=== PATIENT | female | born 1980 | race Two or more races ===

== ENCOUNTER 2024-06-07 09:01 | Emergency (ER) | payer OTHER, SELFPAY ==
[2024-06-07] VITALS (12 sets, daily range): BP systolic 120–142; BP diastolic 67–97; PULSE 91–119; RESP 16–22; TEMP 36.6–37.2; O2SAT 97–100; BMI 36.3
--- NOTE | 2024-06-07 09:17 | PD.EDRME ---
Rapid Medical Screening Exam RME Arrival date/time: 06/07/24 09:01 43-year-old female with history of heavy menstrual cycles presents with concerns for low hemoglobin. Patient reports that she takes TXA on a regular basis. Chief Complaint: General Adult/Misc Complain
--- NOTE | 2024-06-07 09:23 | EKG_ITS ---
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
[2024-06-07 10:15] LABS: Basophils # (Auto) 0.1 Thou/mm3 (0.0-0.2); Basophils % (Auto) 1 % (0-2.5); Eosinophils # (Auto) 0.3 Thou/mm3 (0.0-0.5); Eosinophils % (Auto) 3 % (0-10); Hematocrit 22.3 % (36.0-46.0); Immature Granulocytes % (Auto) 1 % (0-0); Immature Granulocytes Auto 0.09 Thou/mm3 (0.00-0.00); Lymphocytes # (Auto) 1.7 Thou/mm3 (1.0-4.8); Lymphocytes % (Auto) 20 % (10-50); Mean Corpuscular HGB Conc 27.4 g/dl (31.0-37.0); Mean Corpuscular Hemoglobin 19.6 pg (25.0-35.0); Mean Corpuscular Volume 72 fL (80-100); Monocytes # (Auto) 0.7 Thou/mm3 (0.0-0.8); Monocytes % (Auto) 8 % (0-12); Neutrophils # (Auto) 5.7 Thou/mm3 (1.8-7.7); Neutrophils % (Auto) 67 % (37-80); Nucleated Red Blood Cell # 0.09 Thou/mm3 (0.00-0.00); Nucleated Red Blood Cell % 1 /100 WBC (0); Platelet Count 404 Thou/mm3 (140-440); RDW Standard Deviation 61.6 fL (36.4-46.3); Red Blood Count 3.11 Miln/mm3 (4.00-5.20); White Blood Count 8.6 Thou/mm3 (3.6-11.0)
[2024-06-07 10:20] LABS: Hemoglobin 6.1 g/dL (12.0-16.0)
[2024-06-07 10:22] LABS: HCG,Qualitative Serum Negative
[2024-06-07 10:28] LABS: INR 0.9 (0.9-1.3); Partial Thromboplastin Time 21.7 Seconds (22.0-36.0); Prothrombin Time 10.3 Seconds (9.0-12.2)
[2024-06-07 10:29] LABS: Alanine Aminotransferase 16 U/L (10-49); Albumin, Serum 4.5 gm/dL (3.5-5.0); Albumin/Globulin Ratio 1.7 (1.2-2.2); Alkaline Phosphatase 79 U/L (46-116); Anion Gap 7 (7-16); Aspartate Amino Transferase 17 U/L (0-34); BUN/Creatinine Ratio 25 Ratio (12-20); Bilirubin,Total 0.5 mg/dL (0.3-1.2); Blood Urea Nitrogen 15 mg/dL (9-23); Calcium 8.8 mg/dL (8.3-10.6); Calcium (Corrected) 8.8 mg/dL (8.5-10.1); Carbon Dioxide 23.9 mMol/L (20.0-31.0); Chloride 106 mMol/L (98-107); Creatinine (Component) 0.6 mg/dL (0.6-1.3); Globulin 2.6 gm/dL (2.3-3.5); Glucose 111 mg/dL (74-106); Osmolality,Calculated 275 (275-295); Potassium 3.9 mMol/L (3.4-5.1); Sodium 137 mMol/L (136-145); Total Protein 7.1 gm/dL (5.7-8.2); Troponin I < 0.002 ng/mL (0.0-0.045); eGFR > 60 See Note
[2024-06-07 10:31] LABS: Ferritin 6 ng/mL (7.3-270.7); Iron 13 mcg/dL (50-170); Percent Iron Saturation 2 % (20-55); Total Iron Binding Capacity 447 mcg/dL (250-425); Unsaturated Iron Binding 434 (225-295)
[2024-06-07 10:52] LABS: Path Review Blood Smear Sent to Pathologist
--- NOTE | 2024-06-07 11:34 | PD.EDWEAK ---
ED Weakness RME/HPI General Chief complaint: General Adult/Misc Complain Stated complaint: LOW HEMOGLOBIN, SENT FOR BLOOD TRANSFUSION Arrival date/time: 06/07/24 09:01 RME / HPI RME / HPI Narrative: 06/07/24 09:01 43-year-old female with history of heavy menstrual cycles presents with concerns for low hemoglobin. Patient reports that she takes TXA on a regular basis. Related Data Allergies Allergy/AdvReac Type Severity Reaction Status Date / Time No Known Allergies Allergy Verified 06/07/24 09:04 Course Orders Category Date Time Status EKG (ED ONLY) *Do not use* NOW Care 06/07/24 09:23 Completed Insert IV NOW Care 06/07/24 09:17 Active Transfuse,blood/blood products NOW Care 06/07/24 11:28 Active EKG (ED Only) Stat Exams 06/07/24 09:23 Draft CBC Stat Lab 06/07/24 09:55 Completed Comprehensive Metabolic Panel Stat Lab 06/07/24 09:55 Completed Ferritin Stat Lab 06/07/24 09:55 Completed HCG,Qualitative Serum Stat Lab 06/07/24 09:55 Completed Iron Panel Stat Lab 06/07/24 09:55 Completed Partial Thromboplastin Time Stat Lab 06/07/24 09:55 Completed Path Review Blood Smear Stat Lab 06/07/24 09:55 Completed Prothrombin Time with INR Stat Lab 06/07/24 09:55 Completed Red Blood Cells Stat Lab 06/07/24 09:55 Results Troponin I Stat Lab 06/07/24 09:55 Completed Type and Screen Stat Lab 06/07/24 09:55 Results Vital Signs Vital signs: Vital Signs Temperature 98.9 F 06/07/24 09:16 Pulse Rate 119 H 06/07/24 09:16 Respiratory Rate 18 06/07/24 09:16 Blood Pressure 121/84 06/07/24 09:16 Pulse Oximetry (%) 98 06/07/24 09:16 Oxygen Delivery Method Room Air 06/07/24 09:16 Discharge Plan Prescriptions/Referrals Referrals: Sparkle Gerber PA-C [Primary Care Provider] - In 1 week Patient/Caregiver Discharge Instructions Print Language: Russian
--- NOTE | 2024-06-07 12:00 | PD.EDADULT ---
ED General RME/HPI General Chief complaint: General Adult/Misc Complain Stated complaint: LOW HEMOGLOBIN, SENT FOR BLOOD TRANSFUSION Arrival date/time: 06/07/24 09:01 RME / HPI RME / HPI narrative: 06/07/24 09:01 43-year-old female with history of heavy menstrual cycles presents with concerns for low hemoglobin. Patient reports that she takes TXA on a regular basis. DR. LIRA MAIN ED EVALUATION: 43 year old female presents to the Emergency Department sent by PCP for a low hemoglobin requesting a blood transfusion. She states she has been slightly fatigued for the last week but she just ignored it. She then went to see her PCP who ordered labs and sent her here. Patient states she has regular heavy periods that are sometimes irregular as well. She had an endometrial ablation but that did not help; then she was started on TXA a year ago but also that has not been helping. Has not used control. PCP is at [facility]. Related Data Allergies Allergy/AdvReac Type Severity Reaction Status Date / Time No Known Allergies Allergy Verified 06/07/24 09:04 Review of Systems Review of Systems Systems Reviewed: All systems reviewed, normal except as documented Past Medical History Past Medical History NEUROLOGIC: Positive Meningitis GASTROINTESTINAL: Positive Gastrointestinal Disorders, Gall Bladder Disease and Obesity REPRODUCTIVE: Positive Previous Pregnancies (X3) OTHER HISTORY: Positive Blood Transfusions and Chicken Pox Family History FAMILY HISTORY: Positive Family Cardiac Disorders (FATHER (ID)), Family Gastrointestinal Problems (MOTHER (GB)) and Family Surgery (MOTHER, FATHER) Surgical History SURGICAL: Positive Oral Surgery (WISDOM TEETH) and Section (X3) Social History SMOKING STATUS: Never smoker SUBSTANCE USE: does not use ALCOHOL: Never ED Exam Narrative Physical exam: GENERAL APPEARANCE: alert and oriented x 4, well-developed, well-nourished, no acute distress VITALS: All vitals were reviewed and the pulse ox is 97% on room air, which is normal according to my interpretation. HEENT: Normocephalic, atraumatic; pupils equal, round, reactive to light; EOMI; mucous membranes pale, moist; oropharynx clear NECK: Supple LUNGS: CTABL; no wheezes, no rales, no rhonchi HEART: Regular rate, regular rhythm; normal S1, S2; no murmurs ABDOMEN: non distended; normal BS; soft, no tenderness, no guarding, no rebound; no masses, no organomegaly, no hernia BACK: no CVA tenderness EXTREMITIES: atraumatic; no edema NEUROLOGIC: awake; alert and oriented x4; cranial nerves II-XII grossly intact; no focal sensory or motor deficits PSYCHIATRIC: appropriate mood and affect SKIN: warm, dry, normal color; no rashes Course Quality Measures none Orders Category Date Time Status EKG (ED ONLY) *Do not use* NOW Care 06/07/24 09:23 Completed Insert IV NOW Care 06/07/24 09:17 Completed Transfuse,blood/blood products NOW Care 06/07/24 11:28 Completed EKG (ED Only) Stat Exams 06/07/24 09:23 Draft CBC Stat Lab 06/07/24 09:55 Completed Comprehensive Metabolic Panel Stat Lab 06/07/24 09:55 Completed Ferritin Stat Lab 06/07/24 09:55 Completed HCG,Qualitative Serum Stat Lab 06/07/24 09:55 Completed Iron Panel Stat Lab 06/07/24 09:55 Completed Partial Thromboplastin Time Stat Lab 06/07/24 09:55 [address] Review Blood Smear Stat Lab 06/07/24 09:55 Completed Prothrombin Time with INR Stat Lab 06/07/24 09:55 Completed Red Blood Cells Stat Lab 06/07/24 09:55 Completed Troponin I Stat Lab 06/07/24 09:55 Completed Type and Screen Stat Lab 06/07/24 09:55 Completed Vital Signs Vital signs: Vital Signs Temperature 98.9 F 06/07/24 09:16 Pulse Rate 119 H 06/07/24 09:16 Respiratory Rate 18 06/07/24 09:16 Blood Pressure 121/84 06/07/24 09:16 Pulse Oximetry (%) 98 06/07/24 09:16 Oxygen Delivery Method Room Air 06/07/24 09:16 [facility] Patient data External records reviewed:: [facility] previous records (Reviewed last ED visit dated 03/13/19, discharged with the following: Abdominal pain) Clinical information provided by:: patient Social determinants that could affect healthcare access:: none Patient has the following chronic illnesses:: Heavy menses. She had an endometrial ablation but that did not help; then she was started on TXA a year ago but also that has not been helping. Denies any control. How is presenting disease/condition affected by chronic disease/condition?: exacerbated by Evaluation data The following diagnostics were reviewed and interpreted by me:: lab results and EKG tracing(s) Lab and/or radiology exams considered but not ordered:: none Interpretation Summary: EKG#1: EKG at 0936 hours. Interpreted by me: sinus tachycardia, rate 112, no acute ischemic changes Medications Medications considered but not ordered:: none Medication administrations:: see above if any Consultations Consultation(s) initiated? (list below): No Diagnosis Differential Diagnosis ED Complaint MDM: anemia, endometriosis, heavy menses Most likely diagnosis given after review of the tests above:: Symptomatic anemia Transfusion of blood during current hospitalization Admission Indicated Admission indicated?: not indicated Explain why admission is indicated or not indicated:: Patient has no emergent abnormalities on his studies and can be managed on an outpatient basis. Admission Request Was there a request for admission?: No Disposition Plan Disposition Plan: Discharge Discharge Attestation Discharge Attestation: The patient and all family members were given an opportunity to ask questions and understood the discharge instructions. Discharge instructions specifically effects, indications for sooner follow up or return to the emergency department, and the expected course of current diagnosis. Patient condition: Stable Medical Decision Making MDM Narrative MDM Narrative: Mago Henson, am scribing for and in the presence of Dr. Lira. Differential Diagnosis Differential Diagnosis: anemia, endometriosis, heavy menses Lab Data 06/07/24 09:55 06/07/24 09:55 Labs: Lab Results 06/07/24 Range/Units 09:55 WBC 8.6 (3.6-11.0) Thou/mm3 RBC 3.11 L (4.00-5.20) Miln/mm3 Hgb 6.1 L* (12.0-16.0) g/dL Hct 22.3 L (36.0-46.0) % MCV 72 L (80-100) fL MCH 19.6 L (25.0-35.0) pg MCHC 27.4 L (31.0-37.0) g/dl RDW Std Deviation 61.6 H (36.4-46.3) fL Plt Count 404 (140-440) Thou/mm3 Neut % (Auto) 67 (37-80) % Lymph % (Auto) 20 (10-50) % Falls % (Auto) 8 (0-12) % Eos % (Auto) 3 (0-10) % Baso % (Auto) 1 (0-2.5) % Neut # (Auto) 5.7 (1.8-7.7) Thou/mm3 Lymph # (Auto) 1.7 (1.0-4.8) Thou/mm3 Falls # (Auto) 0.7 (0.0-0.8) Thou/mm3 Eos # (Auto) 0.3 (0.0-0.5) Thou/mm3 Baso # (Auto) 0.1 (0.0-0.2) Thou/mm3 Immature Gran # (Auto) 0.09 H (0.00-0.00) Thou/mm3 Absolute Nucleated RBC 0.09 H (0.00-0.00) Thou/mm3 Immature Gran % 1 H (0-0) % Nucleated RBC % 1 H (0) /100 WBC Smear Path Review Sent to Pathologist PT 10.3 (9.0-12.2) Seconds INR 0.9 (0.9-1.3) APTT 21.7 L (22.0-36.0) Seconds Sodium 137 (136-145) mMol/L Potassium 3.9 (3.4-5.1) mMol/L Chloride 106 (98-107) mMol/L Carbon Dioxide 23.9 (20.0-31.0) mMol/L Anion Gap 7 (7-16) BUN 15 (9-23) mg/dL Creatinine 0.6 (0.6-1.3) mg/dL Estim Creat Clear Calc 131.0 (>60) mL/min eGFR > 60 (60 - ) See Note BUN/Creatinine Ratio 25 H (12-20) Ratio Glucose 111 H (74-106) mg/dL Calculated Osmolality 275 (275-295) Calcium 8.8 (8.3-10.6) mg/dL Corrected Calcium 8.8 (8.5-10.1) mg/dL Iron 13 L (50-170) mcg/dL TIBC 447 H (250-425) mcg/dL Iron Saturation 2 L (20-55) % Unsat Iron Binding 434 H (225-295) Ferritin 6 L (7.3-270.7) ng/mL Total Bilirubin 0.5 (0.3-1.2) mg/dL AST 17 (0-34) U/L ALT 16 (10-49) U/L Alkaline Phosphatase 79 (46-116) U/L Troponin I < 0.002 (0.0-0.045) ng/mL Total Protein 7.1 (5.7-8.2) gm/dL Albumin 4.5 (3.5-5.0) gm/dL Globulin 2.6 (2.3-3.5) gm/dL Albumin/Globulin Ratio 1.7 (1.2-2.2) HCG, Qual Negative Blood Type B Positive Antibody Screen NEGATIVE Crossmatch See Detail Blood Bank Wristband ID Yes Discharge Plan Plan Patient Disposition: HOME (Self Care) Prescriptions/Referrals Referrals: Sparkle Gerber PA-C [Primary Care Provider] - In 1 week Problem List Clinical Impression: Symptomatic anemia, Transfusion of blood during current hospitalization Patient/Caregiver Discharge Instructions Education Materials: ED Anemia Type Not Specified Print Language: Urdu Stand Alone Forms: Bea Award Info., Patient Portal Info Letter
--- NOTE | 2024-06-07 14:00 | PC.NURSE ---
FLUIDS, SANDWICH, AND WARM BLANKET PROVIDED.
== END 2024-06-07 18:47 | disposition home or self-care (01) ==
PROVIDERS: Nurse Practitioner Primary Care; Emergency Provider Emergency Medicine; PCP Physician Assistant
DX: D64.9 Anemia, unspecified (principal); R00.0 Tachycardia, unspecified; N92.0 Excessive and frequent menstruation with regular cycle
CPT/HCPCS: 36415; 36430; 80053; 82728; 83540; 83550; 84484; 84703; 85025; 85610; 85730; 86850; 86900; 86901; 86923; 93005; 99285; P9016

== ENCOUNTER 2024-09-27 10:18 | Outpatient (AMB) | payer OTHER, SELFPAY ==
[2024-09-27 10:44] VITALS: BP 144/88; PULSE 105; RESP 17; TEMP 36.9; O2SAT 95; BMI 38.6
--- NOTE | 2024-09-27 10:44 | GYNCLNT_ITS ---
Vital Signs 09/27/24 10:44 Height 1.6 m Height Method Stated Weight 98.94 kg Weight Measurement Method Standing Scale BMI 38.6 BP 144/88 H Blood Pressure Source Automatic Cuff Blood Pressure Location Right Upper Arm Position Sitting Respiration 17 Pulse 105 H Pulse Source Monitor Temp 98.4 F Temp Source Temporal Artery Scan Pulse Oximetry (%) 95 Oxygen Delivery Method Room Air Allergies/Home Meds Allergies & Medications Allergies No Known Allergies Allergy (Verified 09/27/24 11:37) Medication Reconciliation medroxyprogesterone 10 mg tablet (Provera) 10 mg PO QDAY 21 days #21 tabs 09/27/24 [Rx Confirmed 09/27/24] tranexamic acid 650 mg tablet 650 mg PO TID 09/27/24 [History Confirmed 09/27/24] Intake Visit Data Collection New Patient or Established: Established Patient (seen at [facility] within 3 years) Reason for Visit:: REFERRAL HEAVY MENSES Seen by Clinical Staff ONLY (RN/MA): No Manager Servicing Required: No Do You Feel Safe at Home: Yes Authorities Contacted: N/A PCP or OBGYN visit in last 3 months: No Hx Now: No Are you currently on any form of Control: No Last menstrual period: 08/26/24 Pain Present Currently: No Pain Scale Used: Martin-Wolfe/Numerical Pain scale:: 0 Smoking Status Smoking Status: Never smoker Integration Manager history Integration Manager History Menstrual regularity: irregular Flow: heavy How many days does period last: 14 Age at menarche: 12 Currently sexually active: Yes 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 1. Little interest or pleasure in doing things: not at all 2. Feeling down, depressed, or hopeless: not at all Total score: 0 PHQ-9 3. Trouble falling or staying asleep, or sleeping too much: Not at all 4. Feeling tired or having little energy: Not at all 5. Poor appetite or overeating: Not at all 6. Feeling bad about yourself - or that you are a failure or have let yourself or your family down: Not at all 7. Trouble concentrating on things, such as reading the newspaper or watching television: Not at all 8. Moving or speaking so slowly that other people could have noticed? - Or the opposite - being so fidgety or restless that you have been moving around a lot more than usual: not at all 9. Thoughts that you would be better off or of hurting yourself in some way: Not at all Total score: 0 If you checked off any problems, how difficult have these problems made it for you to do your work, take care of things at home, or get along with other people?: not difficult at all Source: Developed by Drs. Roni Villela, Tg Velasco, Tomy Davis and colleagues, with an educational tatiana from [employer]. Depression screen completed yes Social History Living Situation History Marital Status: Lives With: Family Housing: House Tobacco History Smoking Status: Never smoker Second Hand Smoke Exposure: No Alcohol History Alcohol Intake: Never Alcohol Intake Frequency: holidays/special occasions only Domestic Abuse History Do You Feel Safe at Home: Yes History of Present Illness HPI Narrative Ananya reports experiencing significant menstrual pain and prolonged periods lasting up to 14 days. She underwent a uterine ablation in April 2023, which did not improve her symptoms. In April 2024, she required a blood transfusion due to severe anemia from her heavy bleeding. Her last menstrual period was on August 26, 2024, and she describes her current menstrual pattern as irregular and prolonged, with bleeding lasting up to 14 days on and off. She has been taking Tranexamic acid (TXA) for the first five days of her period, but reports that bleeding often resumes after stopping the medication. She expresses frustration with the impact of her symptoms on her daily life, particularly at work. Ananya has noticed recent changes in her overall health, including hair loss. She reports difficulty managing her symptoms at work, sometimes needing to call in due to fear of soaking through her clothes or feeling lightheaded. Ananya has been adherent to her prescribed TXA regimen but feels it is not adequately controlling her symptoms. She mentions that some colleagues have suggested trying an IUD for symptom management. Exam General General Appearance: alert, in no apparent distress and healthy appearing Head Head exam: atraumatic Neck Neck exam: Present normal inspection and trachea midline Chest Chest inspection: Present normal inspection and symmetric chest wall rise External exam: Present normal external exam; Absent tenderness Neuro Neurological exam: Present oriented X3 Psych Psychiatric exam: Present normal affect and normal mood Office Procedures OB Clinic LOC & Office Proc's Nursing/Assessment Patient Status: Established Patient OB Clinic Nursing Assessment: Medication Reconciliation, Update PMH in EMR and Vital Signs OB Clinic Coordination of Care: Complex Care and Chronic Disease 1-5, Education Complex Pt/Fam, Consent,records obtained, informed consent, Education Simp Pt/Fam, Results/Orders obtained and Staff clarify orders Established Patient Charge Established Patient Point Assignment: 110 Established Patient Point Charge: EP Level 3 (80-115) Assessment & Plan Diagnosis / Problem List (1) Perimenopausal menorrhagia: Status: Acute Plan Menorrhagia and Prolonged Menstrual Bleeding: - Heavy menstrual bleeding with periods lasting up to 14 days, started around 2022. - Uterine ablation in 2023 did not improve symptoms. - Blood transfusion required in April 2024 due to severe anemia. - Current treatment with Tranexamic acid (TXA) ineffective. - Differential diagnoses include uterine fibroids, endometrial polyps, or other structural abnormalities. Plan: - Discontinue Tranexamic acid (TXA). - Start Norethindrone (Aygestin) once daily for 21 days, beginning on first day of next menstrual cycle. - Order pelvic ultrasound to evaluate for uterine fibroids, polyps, or other structural abnormalities. - Order complete blood count and other relevant labs to assess anemia status. - Discuss potential treatment options based on ultrasound and lab results: ? Medical management with hormonal therapies (including consideration of levonorgestrel IUD). ? Surgical options (including hysterectomy) if structural abnormalities are found. - Follow up after completion of diagnostic studies to review results and determine next steps in management.
== END 2024-09-27 10:56 | disposition home or self-care (01) ==
LOC: HODSOBC 10:18
PROVIDERS: PCP Physician Assistant; Referring Provider Physician Assistant; Supervising Provider Obstetrics & Gynecology; Visit Provider Obstetrics & Gynecology
DX: N92.4 Excessive bleeding in the premenopausal period (principal)
CPT/HCPCS: 99213; G0463

== ENCOUNTER 2024-10-11 07:56 | Emergency (ER) | payer OTHER, SELFPAY ==
[2024-10-11] VITALS (7 sets, daily range): BP systolic 130–143; BP diastolic 69–93; PULSE 96–107; RESP 17–18; TEMP 36.6–37.2; O2SAT 95–99; BMI 38.4
--- NOTE | 2024-10-11 08:16 | PD.EDRME ---
Rapid Medical Screening Exam RME Arrival date/time: 10/11/24 07:56 Chief Complaint: General Adult/Misc Complain Vital signs: Vital Signs Temperature 98.6 F 10/11/24 08:12 Pulse Rate 106 H 10/11/24 08:12 Respiratory Rate 18 10/11/24 08:12 Blood Pressure 143/82 H 10/11/24 08:12 Pulse Oximetry (%) 99 10/11/24 08:12 Oxygen Delivery Method Room Air 10/11/24 08:12 Pulse ox is 99% room air Vital signs reviewed by provider: Yes RME Narrative: 44-year-old female presents to the ED with a complaint of a heavy menstrual flow. Her menstrual flow began this last Wednesday and she has been changing pads once every 15 minutes. Patient also tells me that she is tired and feels fatigued and is possibly due to her decreased hemoglobin. Patient's past medical history also includes anemia with a decreased hemoglobin for which she was transfused.
--- NOTE | 2024-10-11 08:18 | XR_ITS ---
Examination: Pelvic ultrasound, transabdominal, complete Technique: Transabdominal ultrasound of the pelvis performed using grayscale imaging Date and time of exam: October 11, 2024 0851 hours INDICATIONS: Vaginal bleeding today FINDINGS: Uterus 8.9 cm Lower uterine segment mass 5.1 x 4.5 x 4.9 cm Right ovary 3.7 cm arterial flow Left ovary 2.8 cm arterial flow Endometrial stripe in the fundus 0.5 cm IMPRESSION: Lower uterine segment mass, recommend transvaginal pelvic sonography follow-up
[2024-10-11 10:09] LABS: Basophils # (Auto) 0.1 Thou/mm3 (0.0-0.2); Basophils % (Auto) 1 % (0-2.5); Eosinophils # (Auto) 0.3 Thou/mm3 (0.0-0.5); Eosinophils % (Auto) 3 % (0-10); Hematocrit 25.1 % (36.0-46.0); Immature Granulocytes Auto 0.10 Thou/mm3 (0.00-0.00); Lymphocytes # (Auto) 2.6 Thou/mm3 (1.0-4.8); Lymphocytes % (Auto) 26 % (10-50); Mean Corpuscular HGB Conc 28.3 g/dl (31.0-37.0); Mean Corpuscular Hemoglobin 19.8 pg (25.0-35.0); Mean Corpuscular Volume 70 fL (80-100); Monocytes # (Auto) 0.8 Thou/mm3 (0.0-0.8); Monocytes % (Auto) 8 % (0-12); Neutrophils # (Auto) 6.0 Thou/mm3 (1.8-7.7); Neutrophils % (Auto) 60 % (37-80); Nucleated Red Blood Cell # 0.04 Thou/mm3 (0.00-0.00); Nucleated Red Blood Cell % 0 /100 WBC (0); Platelet Count 359 Thou/mm3 (140-440); RDW Standard Deviation 48.6 fL (36.4-46.3); Red Blood Count 3.58 Miln/mm3 (4.00-5.20); White Blood Count 10.0 Thou/mm3 (3.6-11.0)
[2024-10-11 10:11] LABS: Hemoglobin 7.1 g/dL (12.0-16.0)
[2024-10-11 10:25] LABS: INR 1.0 (0.9-1.3); Partial Thromboplastin Time 22.3 Seconds (22.0-36.0); Prothrombin Time 10.8 Seconds (9.0-12.2)
[2024-10-11 10:28] LABS: Alanine Aminotransferase 25 U/L (10-49); Albumin, Serum 4.1 gm/dL (3.5-5.0); Albumin/Globulin Ratio 1.7 (1.2-2.2); Alkaline Phosphatase 79 U/L (46-116); Anion Gap 8 (7-16); Aspartate Amino Transferase 16 U/L (0-34); BUN/Creatinine Ratio 27 Ratio (12-20); Bilirubin,Total 0.2 mg/dL (0.3-1.2); Blood Urea Nitrogen 16 mg/dL (9-23); Calcium 9.4 mg/dL (8.3-10.6); Calcium (Corrected) 9.4 mg/dL (8.5-10.1); Carbon Dioxide 25.6 mMol/L (20.0-31.0); Chloride 105 mMol/L (98-107); Creatinine (Component) 0.6 mg/dL (0.6-1.3); Estimated Creatinine Clearance 128.7 mL/min (>60); Globulin 2.4 gm/dL (2.3-3.5); Glucose 105 mg/dL (74-106); Osmolality,Calculated 278 (275-295); Potassium 3.3 mMol/L (3.4-5.1); Sodium 139 mMol/L (136-145); Total Protein 6.5 gm/dL (5.7-8.2); eGFR > 60 See Note
--- NOTE | 2024-10-11 11:29 | EDNOTE_ITS ---
ED General RME/HPI General Chief complaint: General Adult/Misc Complain Stated complaint: HEAVY MENSTRAL FLOW; S/SX OF ANEMIA Time Seen by Provider: 10/11/24 11:13 Arrival date/time: 10/11/24 07:56 CC: Heavy menses, fatigue, headache HPI patient presents to the ER with day 6 of her menstrual cycle she has a well-established history of heavy menses that have required transfusion last 1 was in May 2024. 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 Oswald has follow-up on . Patient states medications she was started on last do not work . Patient denies back pain chest pain lower abdominal cramping nausea vomiting diarrhea or rectal bleeding. RME / HPI RME / HPI narrative: 44-year-old female presents to the ED with a complaint of a heavy menstrual flow. Her menstrual flow began this last Wednesday and she has been changing pads once every 15 minutes. Patient also tells me that she is tired and feels fatigued and is possibly due to her decreased hemoglobin. Patient's past medical history also includes anemia with a decreased hemoglobin for which she was transfused. Related Data Home Medications ?Medication ?Instructions ?Recorded ?Confirmed tranexamic acid 650 mg tablet 650 mg PO TID 09/27/24 0 09/27/24 Previous Rx's ?Medication ?Instructions ?Recorded medroxyprogesterone 10 mg tablet 10 mg PO QDAY 21 days #21 tabs 09/27/24 (Provera) Allergies Allergy/AdvReac Type Severity Reaction Status Date / Time No Known Allergies Allergy Verified 10/11/24 08:01 Review of Systems Review of Systems Narrative Review of Systems: GEN: No fever, no chills, no weight loss EYES: No discharge, no visual changes, no pain HEENT: No ear pain, no congestion, no sore throat PULM: No shortness of breath, no cough, no congestion CV: No chest pain, no dyspnea on exertion, no palpitations GI: No nausea, no vomiting, no diarrhea, no pain, no constipation : No frequency, no urgency, no dysuria MUSC/SKEL: No joint pain, no back pain SKIN: No rash PSYCH: No hallucinations, no depression HEME/LYMPH: No easy bleeding or bruising tendencies NEURO: + weakness, no headache Past Medical History Past Medical History NEUROLOGIC: Positive Meningitis; Negative Neurological Disorders or Seizures CARDIAC: Negative Cardiac Disorders, Heart Murmur, Hypercholesterolemia, Congestive Heart Failure, Edema, Cellulitis, Hypertension or Varicose Veins RESPIRATORY: Negative Chronic Obstructive Pulmonary Disease (COPD), Asthma, Bronchitis, Pneumonia, Tuberculosis or Sleep Apnea GASTROINTESTINAL: Positive Gastrointestinal Disorders, Gall Bladder Disease and Obesity; Negative Hepatitis GENITOURINARY: Negative Genitourinary Disorders, Renal Disease or Kidney Stones REPRODUCTIVE: Positive Previous Pregnancies (X3) MUSCULOSKELETAL: Negative Musculoskeletal Disorders, Arthritis, Degenerative Disk Disease, Gout, Fibromyalgia or Fractures ENT: Negative Cataracts or Glaucoma ENDOCRINE: Negative Endocrine Disorders, Diabetes Mellitus Type 1, Diabetes Mellitus Type 2 or Hypothyroidism HEMATOLOGIC: Negative Blood Disorders or Anemia OTHER HISTORY: Positive Blood Transfusions and Chicken Pox; Negative Hospitalization, Autoimmune Disease, Shingles, Falls, Blood Transfusion Reaction, Anesthesia Reactions, Chemotherapy, Radiation Therapy, MRSA, Measles, Mumps or Cancer Family History FAMILY HISTORY: Positive Family Cardiac Disorders (FATHER ([place])), Family Gastrointestinal Problems (MOTHER ([place])) and Family Surgery (MOTHER, FATHER); Negative Family Psychiatric Problems, Family Respiratory Disorders, Family Cancer or Family Anesthesia Reaction Surgical History SURGICAL: Positive Oral Surgery (WISDOM TEETH) and Section (X3); Negative Cardiac Surgery, Pacemaker, Endocrine Surgery, Thyroidectomy, Abdominal Surgery, Nephrectomy, Joint Replacement, Neurologic Surgery, Hysterectomy or Tubal Ligation Social History SMOKING STATUS: Never smoker SECOND HAND EXPOSURE: No SUBSTANCE USE: does not use ED Exam Narrative Physical exam: [General: Obese not in any acute distress Head normocephalic HEENT: Eyes pupils are PERRLA EOMs are intact conjunctiva are blanched, mouth pale dry membranes swallow symmetrical phonation is normal. Nose: No rh inorrhea, although the subsystems of HEENT are within acceptable limits Neck is supple nontender no JVD no edema Chest equal chest rise nontender to palpation Respiratory: Clear to auscultation no wheezes crackles or rubs CV: Rate rhythm is regular no murmurs rubs or clicks Abdomen is distended secondary to body habitus soft nontender no masses positive bowel sounds all 4 quadrants Back: No CVA tenderness no spinous process tenderness from cervical spine thoracic and lumbar spine Skin: Intact no petechiae rash induration ulceration or crepitus Extremities: Moving all extremity against resistance cap refill less than 2 seconds neurosensory intact Neuro: Awake alert oriented x3 Glascow coma 15 no focal deficits] Course Quality Measures none Orders Category Date Time Status US pelvic complete Stat Exams 10/11/24 08:18 Completed CBC Stat Lab 10/11/24 09:53 Completed Comprehensive Metabolic Panel Stat Lab 10/11/24 09:53 Completed PT [Prothrombin Time with INR] Stat Lab 10/11/24 09:53 Completed PTT [Partial Thromboplastin Time] Stat Lab 10/11/24 09:53 Completed Type and Screen Stat Lab 10/11/24 09:53 Completed prbc [Red Blood Cells] Stat Lab 10/11/24 09:53 Completed Acetaminophen Tab [Tylenol Tab] Med 10/11/24 12:46 Discontinued 650 mg PO X1 ONE KCL 10% Liq UDC 15 ML Med 10/11/24 12:40 Discontinued 40 meq GT X1 ONE Vital Signs Vital signs: Vital Signs Temperature 98.6 F 10/11/24 08:12 Pulse Rate 106 H 10/11/24 08:12 Respiratory Rate 18 10/11/24 08:12 Blood Pressure 143/82 H 10/11/24 08:12 Pulse Oximetry (%) 99 10/11/24 08:12 Oxygen Delivery Method Room Air 10/11/24 08:12 Discharge Plan Plan Patient Disposition: HOME (Self Care) Patient condition on transfer: Stable Prescriptions/Referrals Prescriptions/Med Rec: No Action medroxyprogesterone [Provera] 10 mg tablet 10 mg PO QDAY 21 Days Qty: 21 6RF Rx Instructions: Start on first day of menses, repeat every month tranexamic acid 650 mg tablet 650 mg PO TID Referrals: Sparkle Gerber PA-C [Primary Care Provider] - In 1 week Darek (Referring)Jose MD [Referring Provider] - In 1 week Problem List Clinical Impression: Bleeding, uterine, dysfunctional, Anemia Patient/Caregiver Discharge Instructions Other Activity Instructions:: Follow-up as stated with Dr. Oswald, on if there is worsening bleeding or repeat of your symptoms lightheaded dizziness return immediately to the emergency room for reevaluation. Education Materials: Anemia, ED Dysfunctional Uterine Bleeding Print Language: Korean Stand Alone Forms: Bea Award Info., Work/School Release, Patient Portal Info Letter PA/ANDREA Supervising Physician DEBBI Supervising Physician: Ezekiel Mei ENP, MD Attestation MD Attestation The patient was seen by the midlevel practitioner. I, the co-signing physician, was present during the entire ER visit. While I did not physically examine the p atient, I was available for consultation as needed. I agree with the plan and documentation. MDM Clinical Information Provided by patient Medical Records Reviewed [facility] Meds/Rx Considered, not Ordered None Labs/Rad/Tests considered, not Ordered None Chronic Illness/Social Conditions Add or document further as needed: Recurrent anemia secondary to heavy menses. EKG EKG not done Lab Interpretation Lab(s) interpretation(s): CBC shows no leukocytosis H&H of 7.1 and 25.1 respectively note this is improved from May when hemoglobin was 6.1. At this time because the patient is persistently on heavy menses I am electing to transfuse her with a single unit of packed cells. No thrombocytopenia Coags within acceptable limits CMP shows a potassium 3.3 no other electrolyte imbalances renal impairment transaminitis or T. bili elevation Imaging Provider imaging interpretation(s): Ultrasound of the abdomen shows lower uterine segment masses interpreted by the radiologist. Radiology reports / interpretation(s): Patient has close follow-up with Dr. Oswald CONFIGURATION MANAGEMENT SPECIALIST, on outpatient basis, at this time would like to transfuse her and discharge her as I have no other current emergent finding that requires immediate or emergent intervention. Medication Administration(s) Medication Administration History Discontinued Medications Acetaminophen (Acetaminophen 325 Mg Tablet) 650 mg PO X1 ONE Stop: 10/11/24 12:47 Last Admin: 10/11/24 13:34 Dose: 650 mg Documented By: RD Potassium Chloride (Potassium Chloride 10% 20 Meq/15 Ml Udc) 40 meq GT X1 ONE Stop: 10/11/24 12:41 Last Admin: 10/11/24 13:34 Dose: 40 meq Documented By: TAVARES
[2024-10-11] MEDS: ACETAMINOPHEN 325 MG TABLET 650 MG PO (13:34)
[2024-10-11] MEDS: POTASSIUM CHLORIDE 10% 20 MEQ/15 ML UDC 40 MEQ GT (13:34)
== END 2024-10-11 15:43 | disposition home or self-care (01) ==
PROVIDERS: Physician Assistant; Emergency Provider Family Medicine; PCP Physician Assistant
DX: N93.8 Other specified abnormal uterine and vaginal bleeding (principal); D64.9 Anemia, unspecified
CPT/HCPCS: 36415; 36430; 76856; 80053; 85025; 85610; 85730; 86850; 86900; 86901; 86923; 99284; P9016; A9270

== ENCOUNTER → 2024-11-03 | Outpatient (CLI) | payer OTHER, SELFPAY ==
--- NOTE | 2024-11-03 14:00 | XR_ITS ---
Examination: Transvaginal ultrasound of the pelvis, complete Technique: Transvaginal sonographic images pelvis performed using franklin scale imaging Exam date and time: November 03, 2024, 1426 hours INDICATIONS: Lower uterine segment mass 5.1 cm on pelvic sonogram October 11, 2024 FINDINGS: Uterus 10.4 cm, lower uterine body extending to cervix mass 5.2 x 5.0 x 5.2 cm Endometrial stripe 10 mm Right ovary 3.6 cm arterial flow 18 mm follicular cyst Left ovary obscured by bowel gas IMPRESSION: Recommend MRI pelvis follow-up pre and postcontrast to confirm that the uterine mass described above is in the cervix.
--- NOTE | 2024-11-03 14:00 | XR_ITS ---
Examination: Pelvic ultrasound, transabdominal, complete Technique: Transabdominal ultrasound of the pelvis performed using grayscale imaging Date and time of exam: November 03, 2024, 1415 hours INDICATIONS: Lower uterine segment mass 5.1 cm on pelvic sonogram October 11, 2024 FINDINGS: Uterus 10.2 cm lower uterine body to cervix mass 6.1 x 6.4 x 6.7 cm Endometrial stripe 0.7 cm Right ovary 4.6 cm arterial flow 22 mm, 13 mm cyst Left ovary 3.1 arterial flow IMPRESSION: Recommend MRI pelvis follow-up pre and postcontrast to exclude cervical tumor mass, 6.1 x 6.4 x 6.7 cm
== END | disposition home or self-care (01) ==
LOC: CDIM 13:38
PROVIDERS: PCP Physician Assistant; Referring Provider Obstetrics & Gynecology; Visit Provider Obstetrics & Gynecology
DX: N93.9 Abnormal uterine and vaginal bleeding, unspecified (principal); N92.4 Excessive bleeding in the premenopausal period
CPT/HCPCS: 76830; 76856

== ENCOUNTER → 2024-11-13 | Outpatient (CLI) | payer OTHER, SELFPAY ==
[2024-11-13 10:01] LABS: Basophils # (Auto) 0.1 Thou/mm3 (0.0-0.2); Basophils % (Auto) 1 % (0-2.5); Eosinophils # (Auto) 0.3 Thou/mm3 (0.0-0.5); Eosinophils % (Auto) 4 % (0-10); Hematocrit 27.1 % (36.0-46.0); Immature Granulocytes Auto 0.04 Thou/mm3 (0.00-0.00); Lymphocytes # (Auto) 1.9 Thou/mm3 (1.0-4.8); Lymphocytes % (Auto) 24 % (10-50); Mean Corpuscular HGB Conc 28.8 g/dl (31.0-37.0); Mean Corpuscular Hemoglobin 21.0 pg (25.0-35.0); Mean Corpuscular Volume 73 fL (80-100); Monocytes # (Auto) 0.7 Thou/mm3 (0.0-0.8); Monocytes % (Auto) 9 % (0-12); Neutrophils # (Auto) 4.9 Thou/mm3 (1.8-7.7); Neutrophils % (Auto) 61 % (37-80); Nucleated Red Blood Cell # 0.00 Thou/mm3 (0.00-0.00); Nucleated Red Blood Cell % 0 /100 WBC (0); Platelet Count 369 Thou/mm3 (140-440); RDW Standard Deviation 54.3 fL (36.4-46.3); Red Blood Count 3.72 Miln/mm3 (4.00-5.20); White Blood Count 8.0 Thou/mm3 (3.6-11.0)
[2024-11-13 10:08] LABS: Hemoglobin 7.8 g/dL (12.0-16.0); Thyroid Stimulating Hormone 0.91 uIU/mL (0.55-4.78)
[2024-11-13 10:20] LABS: Ferritin 6 ng/mL (7.3-270.7); Iron 12 mcg/dL (50-170); Percent Iron Saturation 3 % (20-55); Total Iron Binding Capacity 397 mcg/dL (250-425); Unsaturated Iron Binding 385 (225-295)
[2024-11-13 10:21] LABS: Follicle Stimulating Hormone 6.90 mIU/mL (See Note)
[2024-11-23 06:57] LABS: Estradiol, Free 0.42 pg/mL; Estradiol, Total 24 pg/mL
== END | disposition home or self-care (01) ==
LOC: COPL 07:55
PROVIDERS: PCP Physician Assistant; Referring Provider Obstetrics & Gynecology; Visit Provider Obstetrics & Gynecology
DX: N92.4 Excessive bleeding in the premenopausal period (principal)
CPT/HCPCS: 36415; 82670; 82681; 82728; 83001; 83540; 83550; 84443; 85025

== ENCOUNTER 2024-12-13 10:49 | Outpatient (AMB) | payer OTHER, SELFPAY ==
[2024-12-13 11:01] VITALS: BP 130/87; PULSE 119; RESP 17; TEMP 37; O2SAT 96; BMI 37.9
--- NOTE | 2024-12-13 11:01 | AMB.GYNCLNOT ---
Vital Signs 12/13/24 11:01 Height 1.6 m Height Method Stated Weight 97.125 kg Weight Measurement Method Standing Scale BMI 37.9 BP 130/87 H Blood Pressure Source Automatic Cuff Blood Pressure Location Right Upper Arm Position Sitting Respiration 17 Pulse 119 H Pulse Source Monitor Temp 98.6 F Temp Source Temporal Artery Scan Pulse Oximetry (%) 96 Oxygen Delivery Method Room Air Allergies/Home Meds Allergies & Medications Allergies No Known Allergies Allergy (Verified 12/28/24 08:41) Intake Visit Data Collection New Patient or Established: Established Patient (seen at [facility] within 3 years) Reason for Visit:: FOLLOW UP Seen by Clinical Staff ONLY (RN/MA): No Auxiliary Equipment Tender Required: No Do You Feel Safe at Home: Yes Authorities Contacted: N/A PCP or OBGYN visit in last 3 months: Yes Date of Last PCP or OBGYN visit: 10/11/24 Hx Now: No Are you currently on any form of Control: No Pain Scale Used: Martin-Wolfe/Numerical Pain scale:: 0 Smoking Status Smoking Status: Never smoker 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 Menstrual regularity: irregular Flow: heavy Monthly: Yes Age at menarche: 11 Currently sexually active: Yes 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 1. Little interest or pleasure in doing things: not at all 2. Feeling down, depressed, or hopeless: not at all Total score: 0 PHQ-9 3. Trouble falling or staying asleep, or sleeping too much: Not at all 4. Feeling tired or having little energy: Not at all 5. Poor appetite or overeating: Not at all 6. Feeling bad about yourself - or that you are a failure or have let yourself or your family down: Not at all 7. Trouble concentrating on things, such as reading the newspaper or watching television: Not at all 8. Moving or speaking so slowly that other people could have noticed? - Or the opposite - being so fidgety or restless that you have been moving around a lot more than usual: not at all 9. Thoughts that you would be better off or of hurting yourself in some way: Not at all Total score: 0 If you checked off any problems, how difficult have these problems made it for you to do your work, take care of things at home, or get along with other people?: not difficult at all Source: Developed by Drs. Roni Villela, Tg Velasco, Tomy Davis and colleagues, with an educational tatiana from [employer]. Depression screen completed yes Social History Living Situation History Marital Status: Lives With: Family Housing: House Tobacco History Smoking Status: Never smoker Second Hand Smoke Exposure: No Alcohol History Alcohol Intake: Never Alcohol Intake Frequency: holidays/special occasions only Domestic Abuse History Do You Feel Safe at Home: Yes History of Present Illness HPI Narrative Ananya is a 44-year-old female with a history of uterine ablation in 2023 presenting for follow-up approximately one month after her initial evaluation for menorrhagia that was not responsive to tranexamic acid. She was transitioned to high-dose progesterone therapy following her previous visit. Subsequently, she presented to the emergency room for symptomatic anemia that required blood transfusion. The patient reports having a period that lasted for 2 months, which has recently stopped. The prescribed medication was ineffective in managing her symptoms. She has a history of uterine ablation in 2023. The patient had been taking tranexamic acid, which was not responsive for menorrhagia, and was then placed on high-dose progesterone, which was also ineffective. The patient will need to inform HR and prepare for 2 months downtime from work, with likely return to work in March. 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 Exam General General Appearance: alert, in no apparent distress and healthy appearing Head Head exam: atraumatic Neck Neck exam: Present normal inspection and trachea midline Chest Chest inspection: Present normal inspection and symmetric chest wall rise External exam: Present normal external exam; Absent tenderness Neuro Neurological exam: Present oriented X3 Psych Psychiatric exam: Present normal affect and normal mood Office Procedures OBC Clinic LOC & Office Proc's Nursing/Assessment Patient Status: Established Patient OB Clinic Nursing Assessment: Medication Reconciliation, Update PMH in EMR and Vital Signs OB Clinic Coordination of Care: Complex Care and Chronic Disease 1-5, Education Complex Pt/Fam, Consent,records obtained, informed consent, Lab and Imaging orders, Results/Orders obtained and Staff clarify orders Established Patient Charge Established Patient Point Assignment: 110 Established Patient Point Charge: EP Level 3 (80-115) Assessment & Plan Diagnosis / Problem List (1) Intramural leiomyoma of uterus: Status: Acute Plan: Diagnostic Test Results and Labs: - CBC (11-13-2024): Hemoglobin 7.8 g/dL (low), Platelets 369 - Coagulation studies (11-13-2024): PT 10.8, INR 1.0, aPTT 22.3 - CMP (11-13-2024): Potassium 3.3 (low) - Iron studies (11-13-2024): Iron 12 (low), TIBC 397, Iron saturation 3% (low), Unsaturated iron binding 385, Ferritin 6 (low) - Thyroid panel (11-13-2024): Within normal limits - Pelvic ultrasound (11-13-2024): 6.9 cm fibroid, approximately 2/3 the size of the uterus Menorrhagia with symptomatic anemia: - Persistent menorrhagia despite previous uterine ablation in 2023 and failed medical management with tranexamic acid and high-dose progesterone. - Developed symptomatic anemia requiring emergency department visit and blood transfusion. - Laboratory findings from 11/13/2024 reveal significant iron deficiency anemia with hemoglobin 7.8, iron 12, iron saturation 3%, and ferritin 6, consistent with chronic blood loss. - Patient experienced prolonged bleeding for 2 months which recently stopped. Plan: - Total hysterectomy including removal of uterus, fibroid, fallopian tubes, and cervix with ovarian preservation. - Submit urgent authorization to insurance for surgical approval. - Schedule surgery once insurance authorization obtained. - Patient to obtain medical clearance for surgery from primary care physician. - Patient advised to inform HR and prepare for 2 months recovery time with anticipated return to work in March. - Office will call to schedule surgery once approved. Large uterine fibroid: - Ultrasound reveals 6.9 cm fibroid measuring approximately 2/3 the size of the uterus, likely contributing to the patient's menorrhagia and treatment failure. Plan: - Surgical management with total hysterectomy as outlined above. - Copy of ultrasound provided to patient. (2) Perimenopausal menorrhagia: Status: Acute
== END 2024-12-13 11:41 | disposition home or self-care (01) ==
LOC: HODSOBC 10:49
PROVIDERS: Supervising Provider Obstetrics & Gynecology; Visit Provider Obstetrics & Gynecology
DX: N92.0 Excessive and frequent menstruation with regular cycle (principal); D25.1 Intramural leiomyoma of uterus; D50.0 Iron deficiency anemia secondary to blood loss (chronic)
CPT/HCPCS: 99213; G0463

== ENCOUNTER → 2024-12-15 | Outpatient (CLI) | payer OTHER, SELFPAY ==
--- NOTE | 2024-12-15 09:07 | XR_ITS ---
EXAMINATION: PA lateral chest 2 views TECHNIQUE: Upright PA lateral chest 2 views Date and time: December 15, 2024, 0914 hours INDICATIONS: Preop FINDINGS: Normal heart size. Lungs are clear. The also structures are intact IMPRESSION: No active disease
== END | disposition home or self-care (01) ==
PROVIDERS: PCP Physician Assistant; Referring Provider Physician Assistant; Visit Provider Physician Assistant
DX: Z01.818 Encounter for other preprocedural examination (principal)
CPT/HCPCS: 71046

== ENCOUNTER → 2024-12-25 | Outpatient (CLI) | payer OTHER, SELFPAY ==
[2024-12-25 16:07] LABS: Basophils # (Auto) 0.1 Thou/mm3 (0.0-0.2); Basophils % (Auto) 1 % (0-2.5); Eosinophils # (Auto) 0.3 Thou/mm3 (0.0-0.5); Eosinophils % (Auto) 4 % (0-10); Hematocrit 25.3 % (36.0-46.0); Immature Granulocytes Auto 0.02 Thou/mm3 (0.00-0.00); Lymphocytes # (Auto) 2.1 Thou/mm3 (1.0-4.8); Lymphocytes % (Auto) 22 % (10-50); Mean Corpuscular HGB Conc 28.5 g/dl (31.0-37.0); Mean Corpuscular Hemoglobin 19.3 pg (25.0-35.0); Mean Corpuscular Volume 68 fL (80-100); Monocytes # (Auto) 0.8 Thou/mm3 (0.0-0.8); Monocytes % (Auto) 8 % (0-12); Neutrophils # (Auto) 6.1 Thou/mm3 (1.8-7.7); Neutrophils % (Auto) 65 % (37-80); Nucleated Red Blood Cell # 0.00 Thou/mm3 (0.00-0.00); Nucleated Red Blood Cell % 0 /100 WBC (0); Platelet Count 414 Thou/mm3 (140-440); RDW Standard Deviation 43.2 fL (36.4-46.3); Red Blood Count 3.74 Miln/mm3 (4.00-5.20); White Blood Count 9.4 Thou/mm3 (3.6-11.0)
[2024-12-25 16:14] LABS: Hemoglobin 7.2 g/dL (12.0-16.0)
[2024-12-25 16:16] LABS: INR 1.0 (0.9-1.3); Partial Thromboplastin Time 23.5 Seconds (22.0-36.0); Prothrombin Time 10.4 Seconds (9.0-12.2)
[2024-12-25 16:21] LABS: Alanine Aminotransferase 28 U/L (10-49); Albumin, Serum 4.6 gm/dL (3.5-5.0); Albumin/Globulin Ratio 2.0 (1.2-2.2); Alkaline Phosphatase 76 U/L (46-116); Anion Gap 11 (7-16); Aspartate Amino Transferase 26 U/L (0-34); BUN/Creatinine Ratio 17 Ratio (12-20); Bilirubin,Total 0.3 mg/dL (0.3-1.2); Blood Urea Nitrogen 10 mg/dL (9-23); Calcium 8.8 mg/dL (8.3-10.6); Calcium (Corrected) 8.8 mg/dL (8.5-10.1); Carbon Dioxide 23.8 mMol/L (20.0-31.0); Cardiac Risk Estimate 4.3 RATIO (3.7-5.6); Chloride 106 mMol/L (98-107); Cholesterol 141 mg/dL (132-200); Creatinine (Component) 0.6 mg/dL (0.6-1.3); Free T4 (Free Thyroxine) 1.14 ng/dL (0.89-1.76); Globulin 2.3 gm/dL (2.3-3.5); Glucose 107 mg/dL (74-106); HDL Cholesterol 33 mg/dL (40-60); LDL Cholesterol,Calculated 84 mg/dL (0-130); Osmolality,Calculated 280 (275-295); Potassium 3.3 mMol/L (3.4-5.1); Sodium 141 mMol/L (136-145); Thyroid Stimulating Hormone 1.55 uIU/mL (0.55-4.78); Total Protein 6.9 gm/dL (5.7-8.2); Triglycerides 118 mg/dL (30-150); eGFR > 60 See Note
[2024-12-25 16:23] LABS: Vitamin D 25 Hydroxy Total 24.5 ng/mL (7.3-40.2)
[2024-12-25 16:39] LABS: Syphilis Nonreactive (Nonreactive)
[2024-12-25 16:53] LABS: Glucose Estimated Average 114 mg/dL (80-131); Hemoglobin A1C 5.6 % Hgb (4.8-6.0)
[2024-12-26 10:45] LABS: Chlamydia trachomatis PCR Negative (Not Detect); Neisseria Gonorrhoeae DNA PCR Negative (Not Detect); Trichomonas Negative (Negative)
[2025-01-01 13:52] LABS: HCV RNA, PCR <15 NOT DETECTED IU/mL; Hepatitis B Virus DNA* NOT DETECTED
[2025-01-02 06:15] LABS: HCV RNA, PCR Log IU <1.18 NOT DETECTED Log IU/mL; HIV Ag/Ab, 4th Gen NON-REACTIVE; Hepatitis B DNA PCR NOT DETECTED Log IU/mL
== END | disposition home or self-care (01) ==
LOC: COPL 15:18
PROVIDERS: PCP Physician Assistant; Referring Provider Physician Assistant; Visit Provider Physician Assistant
DX: N92.6 Irregular menstruation, unspecified (principal); D50.9 Iron deficiency anemia, unspecified; Z12.89 Encounter for screening for malignant neoplasm of other sites
CPT/HCPCS: 36415; 80053; 80061; 82306; 83036; 84439; 84443; 85025; 85610; 85730; 86780; 87389; 87491; 87517; 87522; 87591; 87661

== ENCOUNTER 2024-12-28 08:38 | Observation (INO) | payer OTHER, SELFPAY ==
[2024-12-28] VITALS (12 sets, daily range): BP systolic 126–188; BP diastolic 83–96; PULSE 96–127; RESP 17–22; TEMP 36.3–37; O2SAT 94–99; BMI 38.4; BMI 38.1
--- NOTE | 2024-12-28 08:51 | EKG_ITS ---
[facility] Test Date: 2024-12-28 Pat Name: JENN MCCRARY Department: Room: - Gender: Female Manager Documentation: : 1980 Requested By: Bandar Casey (KAYLAH) Order Number: [id number] Reading MD: Bandar Casey (KAYLAH) Measurements Intervals [place] Rate: 102 P: 25 GA: 165 QRS: 13 QRSD: 88 T: 47 QT: 359 QTc: 470 Interpretive Statements SINUS TACHYCARDIA ABNORMAL RHYTHM ECG Compared to ECG 06/07/2024 09:36:01 No significant changes /store/S0/[id number]
--- NOTE | 2024-12-28 09:23 | EDNOTE_ITS ---
ED Recheck Abnl Lab Rx-RME/HPI General Chief Complaint: Recheck/Abnormal Lab/Rx Stated Complaint: HGB 7.2 Time Seen by Provider: 12/28/24 08:50 Arrival date/time: 12/28/24 08:38 44-year-old female with medical history significant for menorrhagia presents for concerns for low hemoglobin outpatient labs drawn 3 days ago. Patient reports that she is scheduled to have a hysterectomy but is waiting approval. Patient reports generalized fatigue and reports that she is here for a blood transfusion. Patient reports no fever nausea or vomiting no dizziness no chest pain or shortness of breath Limitations: no limitations Related Data Allergies Allergy/AdvReac Type Severity Reaction Status Date / Time No Known Allergies Allergy Verified 12/28/24 08:41 Review of Systems Review of Systems Systems Reviewed: All systems reviewed, normal except as documented Constitutional Constitutional: Reports system reviewed and no additional complaints, except as documented, Denies fever(s) and Denies headache(s) Eyes Eyes: Reports system reviewed and no additional complaints, except as documented and Denies blurry vision ENT Ears, Nose, Mouth, and Throat: Reports system reviewed and no additional co mplaints, except as documented, Denies headache(s), Denies nasal congestion and Denies nasal discharge Cardiovascular Cardiovascular: Reports system reviewed and no additional complaints, except as documented, Denies chest pain and Denies dyspnea Respiratory Respiratory: Reports system reviewed and no additional complaints, except as documented, Denies chest congestion, Denies cough and Denies dyspnea Gastrointestinal Gastrointestinal: Reports system reviewed and no additional complaints, except as documented and Denies abdominal pain Integumentary/Breasts Skin/Breast: Reports system reviewed and no additional complaints, except as documented and Denies rash Neurologic Neurologic: Reports system reviewed and no additional complaints, except as d ocumented, Reports as per HPI and Denies headache(s) Past Medical History Past Medical History NEUROLOGIC: Positive Meningitis; Negative Neurological Disorders or Seizures CARDIAC: Negative Cardiac Disorders, Heart Murmur, Hypercholesterolemia, Congestive Heart Failure, Edema, Cellulitis, Hypertension or Varicose Veins RESPIRATORY: Negative Chronic Obstructive Pulmonary Disease (COPD), Asthma, Bronchitis, Pneumonia, Tuberculosis or Sleep Apnea GASTROINTESTINAL: Positive Gastrointestinal Disorders, Gall Bladder Disease and Obesity; Negative Hepatitis GENITOURINARY: Negative Genitourinary Disorders, Renal Disease or Kidney Stones REPRODUCTIVE: Positive Previous Pregnancies MUSCULOSKELETAL: Negative Musculoskeletal Disorders, Arthritis, Degenerative Disk Disease, Gout, Fibromyalgia or Fractures ENT: Negative Cataracts or Glaucoma ENDOCRINE: Negative Endocrine Disorders, Diabetes Mellitus Type 1, Diabetes Mellitus Type 2 or Hypothyroidism HEMATOLOGIC: Negative Blood Disorders or Anemia OTHER HISTORY: Positive Blood Transfusions and Chicken Pox; Negative Hospitalization, Autoimmune Disease, Shingles, Falls, Blood Transfusion Reaction, Anesthesia Reactions, Chemotherapy, Radiation Therapy, MRSA, Measles, Mumps or Cancer Family History FAMILY HISTORY: Positive Family Cardiac Disorders, Family Gastrointestinal Problems and Family Surgery; Negative Family Psychiatric Problems, Family Respiratory Disorders, Family Cancer or Family Anesthesia Reaction Surgical History SURGICAL: Positive Oral Surgery and Section; Negative Cardiac Surgery, Pacemaker, Endocrine Surgery, Thyroidectomy, Abdominal Surgery, Nephrectomy, Joint Replacement, Neurologic Surgery, Hysterectomy or Tubal Ligation Social History SMOKING STATUS: Never smoker SECOND HAND EXPOSURE: No SUBSTANCE USE: does not use ED Exam General Limitations: Present no limitations General appearance: Present alert and in no apparent distress Head Head exam: Present atraumatic Eye Eye exam: Present normal appearance, PERRL and EOMI ENT ENT exam: Present normal exam, normal oropharynx and mucous membranes moist Neck Neck exam: Present normal inspection, full ROM and trachea midline Chest Chest inspection: Present normal inspection and symmetric chest wall rise Respiratory Respiratory exam: Present normal lung sounds bilaterally Cardiovascular Cardiovascular exam: Present regular rate, normal rhythm and normal heart sounds Abdominal Exam Abdominal exam: Present soft and normal bowel sounds Extremities Exam Extremities exam: Present normal inspection and full ROM Back Exam Back exam: Present normal inspection and full ROM Neurological Exam Neurological exam: Present alert, oriented X3 and CN II-XII intact Psychiatric Psychiatric exam: Present normal affect and normal mood Skin Skin exam: Present warm, dry, intact and normal color Course Quality Measures none Orders Category Date Time Status EKG (ED ONLY) *Do not use* NOW Care 12/28/24 08:51 Completed Consult to Gynecology Stat Cons 12/28/24 08:52 Ordered EKG (ED Only) Stat Exams 12/28/24 08:51 Draft CBC Stat Lab 12/28/24 09:09 Completed Comprehensive Metabolic Panel Stat Lab 12/28/24 09:09 Completed Partial Thromboplastin Time Stat Lab 12/28/24 09:09 Completed Prothrombin Time with INR Stat Lab 12/28/24 09:09 Completed Type and Screen Stat Lab 12/28/24 09:09 Results Vital Signs Vital signs: Vital Signs Temperature 98.3 F 12/28/24 08:48 Pulse Rate 108 H 12/28/24 08:48 Respiratory Rate 19 12/28/24 08:48 Blood Pressure 188/96 H 12/28/24 08:48 Pulse Oximetry (%) 98 12/28/24 08:48 Oxygen Delivery Method Room Air 12/28/24 08:48 O2 saturation 98% room air within normal limits Recheck / Abnormal Lab / Rx MDM Narrative MDM Narrative:: 44-year-old female with medical history significant for menorrhagia presents for concerns for low hemoglobin outpatient labs drawn 3 days ago. Patient reports that she is scheduled to have a hysterectomy but is waiting approval. Patient reports generalized fatigue and reports that she is here for a blood transfusion. Patient reports no fever nausea or vomiting no dizziness no chest pain or shortness of breath On exam patient (patient does not appear look toxic patient does report generalized fatigue secondary low hemoglobin Patient affected patient has persistent bleeding requiring blood transfusions I believe patient requires admission Consultation: I spoke with Dr. Oswald states he will admit the patient to hospital Initial labs ordered as well as blood transfusion. At time of admission patient is in no distress Patient data External records reviewed:: [facility] previous records Clinical information provided by:: patient Social determinants that could affect healthcare access:: none Patient has the following chronic illnesses:: She history How is presenting disease/condition affected by chronic disease/condition?: caused by Evaluation data The following diagnostics were reviewed and interpreted by me:: lab results, radiology exam(s) and EKG tracing(s) Lab and/or radiology exams considered but not ordered:: Labs, radiology, EKG obtained Interpretation Summary: Reviewed by me Medications / Prescriptions Medications or Prescriptions considered but not ordered:: Given Medication administrations:: Medication Administration History Acetaminophen (Acetaminophen 325 Mg Tablet) 650 mg PO Q6H PRN PRN Reason: PAIN SCALE 1-3 (mild Stop: 01/27/25 09:06 Acetaminophen (Acetaminophen 325 Mg Tablet) 650 mg PO Q6H PRN PRN Reason: Fever >101.5 Stop: 01/27/25 09:06 Bisacodyl (Bisacodyl 5 Mg Tabec) 10 mg PO QDAY PRN PRN Reason: CONSTIPATION Stop: 01/27/25 09:06 Famotidine (Famotidine Inj 10 Mg/Ml Vial 2 Ml) 20 mg IVP Q12HR ROSENDO Stop: 01/27/25 20:59 Potassium Chloride/Dextrose/Sod Cl (Kcl 20 Meq/L In D5-1/2ns) 20 meq in 1,000 mls @ 150 mls/hr IV .Q6H40M ROSENDO Stop: 01/27/25 09:14 Ondansetron HCl (Ondansetron Inj 2 Mg/Ml Inj 2 Ml) 4 mg IV Q6H PRN PRN Reason: NAUSEA OR VOMITING Stop: 01/27/25 09:06 Discontinued Medications Acetaminophen (Acetaminophen 325 Mg Tablet) 650 mg PO X1 ONE Stop: 12/28/24 09:08 Diphenhydramine HCl (Diphenhydramine 25 Mg Capsule) 25 mg PO X1 ONE Stop: 12/28/24 09:08 Sodium Chloride (Ns) 250 mls @ 999 mls/hr IV .Q16M ONE Stop: 12/28/24 09:22 Tranexamic Acid (Tranexamic Acid Ivpb) 1,000 mg in 100 mls @ 200 mls/hr IV STAT STA Stop: 12/28/24 09:36 Given Consultations Consultation(s) initiated? (list below): No Diagnosis Recheck Differential Diagnosis: other (Dysfunctional uterine bleeding, vaginal bleeding, fatigue, mass) Most likely diagnosis given after review of the tests above:: Dysfunction uterine bleeding Admission Indicated Admission indicated?: indicated Admission Request Was there a request for admission?: Yes Admission Attestation Admission request attestation: Discussed case with [] from Hospitalist service regarding admission. Discussed patients ED course, exam findings, labs, and radiology results. The Hospitalist [agrees,declines] to accept the patient for admission. 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 Hand
[2024-12-28 09:46] LABS: Basophils # (Auto) 0.1 Thou/mm3 (0.0-0.2); Basophils % (Auto) 1 % (0-2.5); Eosinophils # (Auto) 0.3 Thou/mm3 (0.0-0.5); Eosinophils % (Auto) 3 % (0-10); Hematocrit 25.9 % (36.0-46.0); Immature Granulocytes Auto 0.03 Thou/mm3 (0.00-0.00); Lymphocytes # (Auto) 2.3 Thou/mm3 (1.0-4.8); Lymphocytes % (Auto) 27 % (10-50); Mean Corpuscular HGB Conc 28.2 g/dl (31.0-37.0); Mean Corpuscular Hemoglobin 19.1 pg (25.0-35.0); Mean Corpuscular Volume 68 fL (80-100); Monocytes # (Auto) 0.8 Thou/mm3 (0.0-0.8); Monocytes % (Auto) 9 % (0-12); Neutrophils # (Auto) 5.2 Thou/mm3 (1.8-7.7); Neutrophils % (Auto) 60 % (37-80); Nucleated Red Blood Cell # 0.00 Thou/mm3 (0.00-0.00); Nucleated Red Blood Cell % 0 /100 WBC (0); Platelet Count 409 Thou/mm3 (140-440); RDW Standard Deviation 43.1 fL (36.4-46.3); Red Blood Count 3.82 Miln/mm3 (4.00-5.20); White Blood Count 8.6 Thou/mm3 (3.6-11.0)
[2024-12-28 09:56] LABS: Hemoglobin 7.3 g/dL (12.0-16.0)
[2024-12-28 10:08] LABS: INR 0.9 (0.9-1.3); Partial Thromboplastin Time 23.7 Seconds (22.0-36.0); Prothrombin Time 10.0 Seconds (9.0-12.2)
[2024-12-28 10:09] LABS: Alanine Aminotransferase 32 U/L (10-49); Albumin, Serum 4.5 gm/dL (3.5-5.0); Albumin/Globulin Ratio 1.8 (1.2-2.2); Alkaline Phosphatase 93 U/L (46-116); Anion Gap 11 (7-16); Aspartate Amino Transferase 27 U/L (0-34); BUN/Creatinine Ratio 22 Ratio (12-20); Bilirubin,Total 0.3 mg/dL (0.3-1.2); Blood Urea Nitrogen 11 mg/dL (9-23); Calcium 8.7 mg/dL (8.3-10.6); Calcium (Corrected) 8.7 mg/dL (8.5-10.1); Carbon Dioxide 24.4 mMol/L (20.0-31.0); Chloride 105 mMol/L (98-107); Creatinine (Component) 0.5 mg/dL (0.6-1.3); Estimated Creatinine Clearance 160.5 mL/min (>60); Globulin 2.5 gm/dL (2.3-3.5); Glucose 92 mg/dL (74-106); Osmolality,Calculated 278 (275-295); Potassium 3.9 mMol/L (3.4-5.1); Sodium 140 mMol/L (136-145); Total Protein 7.0 gm/dL (5.7-8.2); eGFR > 60 See Note
[2024-12-28] MEDS: KCL 20 mEq/L in D5-1/2NS 20 MEQ/1,000 ML BAG 150 MEQ IV ×2 (14:56→22:49)
[2024-12-28] MEDS: ACETAMINOPHEN 325 MG TABLET 650 MG PO (14:56)
[2024-12-28] MEDS: SODIUM CHLORIDE 0.9% 250 ML 250 ML 999 ML IV (14:57)
[2024-12-28] MEDS: TRANEXAMIC ACID 1,000 MG IVPB 1,000 MG/100 ML BAG 200 MG IV (15:43)
--- NOTE | 2024-12-28 19:11 | PD.GYNHP ---
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 She has persistent menorrhagia and a known 6.9 centimeter fibroid. The patient has a history of requiring multiple blood transfusions for symptomatic anemia and was currently being prepared for hysterectomy surgery prior to this presentation. She has had multiple recent visits related to her ongoing condition. Her menorrhagia has been persistent and has resulted in symptomatic anemia requiring repeated blood transfusions. ROS: General: Positive for weakness and dizziness. Meds Home Medications and Allergies Allergies Allergy/AdvReac Type Severity Reaction Status Date / Time No Known Allergies Allergy Verified 12/28/24 08:41 Exam - TOOL SALVAGE WORKER Vital Signs Temp Pulse Resp BP Pulse Ox O2 Del Method 98.2 F 101 H 20 139/92 H 98 Room Air 12/28/24 17:22 12/28/24 17:22 12/28/24 17:22 12/28/24 17:22 12/28/24 17:22 12/28/24 16:00 Constitutional Constitutional: no acute distress Routine HEENT Exam Head: Present normocephalic and atraumatic Eye: Present EOMI and PERRL ENT: Present mucous membranes moist Routine Neck Exam Neck: Present supple and trachea midline Routine Respiratory Exam Respiratory: Present chest non-tender, lungs clear, normal breath sounds and no resp distress Routine Cardiovascular Exam Cardiovascular: Present RRR Routine Abdominal Exam Abdominal: Present soft and normoactive bowel sounds Routine Extremities Exam Extremities: Present full ROM Routine Skin Exam Skin: Present intact and dry Routine Neurological Exam Neurological: Present alert, oriented X3 and CN II-XII intact Routine Psychiatric Exam Psychiatric: Present normal affect and normal thought process TOOL SALVAGE WORKER - Results Labs 12/28/24 09:09 12/28/24 09:09 Labs: Short CBC 12/28/24 Range/Units 09:09 WBC 8.6 (3.6-11.0) Thou/mm3 Hgb 7.3 L (12.0-16.0) g/dL Hct 25.9 L (36.0-46.0) % Plt Count 409 (140-440) Thou/mm3 BMP 12/28/24 09:09 Sodium 140 Potassium 3.9 D Chloride 105 Carbon Dioxide 24.4 BUN 11 Creatinine 0.5 L Glucose 92 Calcium 8.7 Liver Function 12/28/24 Range/Units 09:09 Total Bilirubin 0.3 (0.3-1.2) mg/dL AST 27 (0-34) U/L ALT 32 (10-49) U/L Alkaline Phosphatase 93 D (46-116) U/L Albumin 4.5 (3.5-5.0) gm/dL Assessment and Plan Assessment and plan (1) Symptomatic anemia: Status: Acute (2) Bleeding, uterine, dysfunctional: Status: Acute Assessment and plan: Symptomatic anemia secondary to menorrhagia: - Hemoglobin levels in the 7.1 to 7.4 range, with lowest being 6.1 in May. - Required multiple blood transfusions due to persistent menorrhagia. - Currently presenting with weakness and dizziness consistent with symptomatic anemia. Plan: - Admit to inpatient status for blood transfusion and correction of anemia. - Monitor for signs of ongoing blood loss and anemia. - Further treatment based on response to transfusion and improvement in general status. Uterine leiomyoma with degeneration: - Known 6.9 cm fibroid with signs of degeneration on ultrasound. - Patient was currently being prepared for hysterectomy surgery. Plan: - Discuss surgery with patient. - Surgery may not be performed immediately due to upcoming weekend. (3) Intramural leiomyoma of uterus: Status: Acute (4) Perimenopausal menorrhagia: Status: Acute Quality Measures Quality Measures none
[2024-12-28] MEDS: FAMOTIDINE INJ 10 MG/ML VIAL 2 ML 20 MG IVP (20:42)
[2024-12-29] VITALS (13 sets, daily range): BP systolic 134–149; BP diastolic 80–97; PULSE 85–96; RESP 16–20; TEMP 36.2–36.6; O2SAT 94–98
[2024-12-29 01:01] LABS: Hematocrit 30.5 % (36.0-46.0); Hemoglobin 8.9 g/dL (12.0-16.0)
--- NOTE | 2024-12-29 05:19 | PC.NURSE ---
Unable to scan FFP bag. In place of this, the downtime form for giving blood products was used.
[2024-12-29] MEDS: KCL 20 mEq/L in D5-1/2NS 20 MEQ/1,000 ML BAG 150 MEQ IV (06:09)
[2024-12-29] MEDS: FAMOTIDINE INJ 10 MG/ML VIAL 2 ML 20 MG IVP (09:14)
[2024-12-29] MEDS: ACETAMINOPHEN 325 MG TABLET 650 MG PO (09:14)
--- NOTE | 2024-12-29 11:31 | PC.SS ---
SS met with patient regarding her d/c plan. Pt is alert/oriented. Pt was admitted for Menorrhagaia, Fibroids. Pt confirmed demographic and contact information is correct on facesheet. Pt resides with , mom, and son. Pt ambulates independently without assistance or DME. Pt is ok with all ADLs. Patient?s pharmacy of choice is [facility] on [address]. Pt named her , Kyle Mccarthy medical decision maker if she is unable. Patient?s choice is to return home upon d/c. Pt states she has an advance directive at home. Pt states she is not diabetic and is not on dialysis. Pt states she followed up with PCP yesterday. will provide transportation home. D/C plan: Return home Next of Kin: Kyle Mccarthy, , phone# [phone] PCP: Dr. Sparkle Gerber from [facility] Address: Correct on facesheet
[2024-12-29 11:44] LABS: Basophils # (Auto) 0.1 Thou/mm3 (0.0-0.2); Basophils % (Auto) 1 % (0-2.5); Eosinophils # (Auto) 0.2 Thou/mm3 (0.0-0.5); Eosinophils % (Auto) 3 % (0-10); Hematocrit 38.5 % (36.0-46.0); Hemoglobin 11.6 g/dL (12.0-16.0); Immature Granulocytes Auto 0.21 Thou/mm3 (0.00-0.00); Lymphocytes # (Auto) 1.9 Thou/mm3 (1.0-4.8); Lymphocytes % (Auto) 20 % (10-50); Mean Corpuscular HGB Conc 30.1 g/dl (31.0-37.0); Mean Corpuscular Hemoglobin 21.6 pg (25.0-35.0); Mean Corpuscular Volume 72 fL (80-100); Monocytes # (Auto) 1.0 Thou/mm3 (0.0-0.8); Monocytes % (Auto) 10 % (0-12); Neutrophils # (Auto) 6.2 Thou/mm3 (1.8-7.7); Neutrophils % (Auto) 65 % (37-80); Nucleated Red Blood Cell # 0.07 Thou/mm3 (0.00-0.00); Nucleated Red Blood Cell % 1 /100 WBC (0); Platelet Count 372 Thou/mm3 (140-440); RDW Standard Deviation 48.8 fL (36.4-46.3); Red Blood Count 5.36 Miln/mm3 (4.00-5.20); White Blood Count 9.6 Thou/mm3 (3.6-11.0)
--- NOTE | 2024-12-29 13:12 | PD.GYNPROG ---
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 She received 4 units of packed RBCs and 1 FFP. Uterine bleeding has significantly subsided. Patient denies any new complaints today. Exam Vital Signs Temp Pulse Resp BP Pulse Ox O2 Del Method 97.7 F 95 18 148/95 H 98 Room Air 12/29/24 09:54 12/29/24 09:54 12/29/24 09:54 12/29/24 09:54 12/29/24 09:54 12/29/24 08:00 Constitutional Constitutional: no acute distress Routine HEENT Exam Head: Present normocephalic and atraumatic Eye: Present EOMI and PERRL ENT: Present mucous membranes moist Routine Neck Exam Neck: Present supple and trachea midline Routine Respiratory Exam Respiratory: Present chest non-tender, lungs clear, normal breath sounds and no resp distress Routine Cardiovascular Exam Cardiovascular: Present RRR Routine Abdominal Exam Abdominal: Present soft and normoactive bowel sounds Routine Extremities Exam Extremities: Present full ROM Routine Skin Exam Skin: Present intact and dry Routine Neurological Exam Neurological: Present alert, oriented X3 and CN II-XII intact Routine Psychiatric Exam Psychiatric: Present normal affect and normal thought process Urinary Catheter Management Cath placed during this visit: no FINANCIAL SALES REPRESENTATIVE - PN: Obj Data Labs 12/29/24 11:15 12/28/24 09:09 Labs: Laboratory Results - last 24 hr 12/28/24 12/29/24 12/29/24 09:09 00:53 11:15 WBC 9.6 RBC 5.36 H Hgb 8.9 L D 11.6 L D Hct 30.5 L 38.5 MCV 72 L MCH 21.6 L MCHC 30.1 L RDW Std Deviation 48.8 H Plt Count 372 D Neut % (Auto) 65 Lymph % (Auto) 20 [place] % (Auto) 10 Eos % (Auto) 3 Baso % (Auto) 1 Neut # (Auto) 6.2 Lymph # (Auto) 1.9 [place] # (Auto) 1.0 H Eos # (Auto) 0.2 Baso # (Auto) 0.1 Immature Gran # (Auto) 0.21 H Absolute Nucleated RBC 0.07 H Immature Gran % 2 H Nucleated RBC % 1 H Blood Type B Positive Antibody Screen POSITIVE Antibody Identification Inconclusive Crossmatch See Detail Blood Bank Wristband ID Yes Blood Bank Comment FFP Ready FINANCIAL SALES REPRESENTATIVE - A/P Assessment and plan (1) Symptomatic anemia: Status: Acute (2) Bleeding, uterine, dysfunctional: Status: Acute (3) Intramural leiomyoma of uterus: Status: Acute Assessment and plan: Plan to discharge home today. Patient is scheduled for total abdominal hysterectomy on 01/04. ER precautions reviewed Return for surgery as scheduled. (4) Perimenopausal menorrhagia: Status: Acute Time Spent With Patient Time: Total time spent is greater than 50% in coordination of care (as documented) at patient's floor/unit and/or counseling patient: Time with patient: less than 15 minutes
--- NOTE | 2024-12-29 13:54 | PC.SS ---
Follow up note: On IV fluids. Received 4 units of blood. Pt will return home upon dc.
== END 2024-12-29 14:07 | disposition home or self-care (01) ==
LOC: SERX 09:49 → SERHOLD 14:18 → S3NX 12-29 09:08 → SERHOLD 12-29 09:49 → S3NX 12-29 09:51 → S3SX 12-29 10:27
PROVIDERS: Nurse Practitioner Primary Care; Admitting Provider Obstetrics & Gynecology; Emergency Provider Emergency Medicine; PCP Physician Assistant; Visit Provider Obstetrics & Gynecology
DX: D64.9 Anemia, unspecified (principal); D25.1 Intramural leiomyoma of uterus; N92.4 Excessive bleeding in the premenopausal period
CPT/HCPCS: 36415; 80053; 85014; 85018; 85025; 85610; 85730; 86850; 86870; 86900; 86901; 86920; 86921; 86922; 86927; 93005; 96365; 96366; 96375; 96376; G0378; J3480; J3490; J7050; P9016; P9060; A9270

== ENCOUNTER 2025-01-04 05:45 | Inpatient (IN) | payer OTHER, SELFPAY ==
[2025-01-02 10:16] VITALS: BMI 38.0
[2025-01-02 12:16] LABS: Basophils # (Auto) 0.1 Thou/mm3 (0.0-0.2); Basophils % (Auto) 1 % (0-2.5); Eosinophils # (Auto) 0.3 Thou/mm3 (0.0-0.5); Eosinophils % (Auto) 4 % (0-10); Hematocrit 39.9 % (36.0-46.0); Hemoglobin 12.1 g/dL (12.0-16.0); Immature Granulocytes Auto 0.03 Thou/mm3 (0.00-0.00); Lymphocytes # (Auto) 2.0 Thou/mm3 (1.0-4.8); Lymphocytes % (Auto) 22 % (10-50); Mean Corpuscular HGB Conc 30.3 g/dl (31.0-37.0); Mean Corpuscular Hemoglobin 22.2 pg (25.0-35.0); Mean Corpuscular Volume 73 fL (80-100); Monocytes # (Auto) 0.9 Thou/mm3 (0.0-0.8); Monocytes % (Auto) 9 % (0-12); Neutrophils # (Auto) 6.1 Thou/mm3 (1.8-7.7); Neutrophils % (Auto) 65 % (37-80); Nucleated Red Blood Cell # 0.00 Thou/mm3 (0.00-0.00); Nucleated Red Blood Cell % 0 /100 WBC (0); Platelet Count 384 Thou/mm3 (140-440); RDW Standard Deviation 55.6 fL (36.4-46.3); Red Blood Count 5.45 Miln/mm3 (4.00-5.20); White Blood Count 9.4 Thou/mm3 (3.6-11.0)
[2025-01-02 12:33] LABS: HCG,Qualitative Serum Negative
[2025-01-04] VITALS (17 sets, daily range): BP systolic 117–147; BP diastolic 72–93; PULSE 84–103; RESP 12–20; TEMP 35.9–36.7; O2SAT 92–99; BMI 38.6
--- NOTE | 2025-01-04 09:15 | PD.GYNPROC ---
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 Identity was confirmed by double identifiers and she was placed on the operating table. General anesthesia was administered and the patient was positioned in the supine position. The abdomen and perineum were prepped in the usual sterile fashion. A Salazar catheter was placed under sterile precautions. The patient was now draped using sterile drapes. A timeout procedure was confirmed as per protocol. A Pfannenstiel incision was made with a scalpel and carried through the subcutaneous fat up to the rectus fascia. The rectus fascia was incised on either side of the midline and the incisions were carried laterally using sharp dissection. The superior edge of the rectus fascia was now grasped using a pair of Adelaida clamps and placed under traction and the rectus muscle was dissected off the under surface of the fascia. The same procedure was repeated on the inferior aspect. Peritoneal entry was accomplished through a small opening that was already existing. The peritoneal opening was stretched but the muscles were tight and room was inadequate. A Maylard incision was made on the left rectus muscle to extend the opening. The Herb O ring retractor was now placed for retraction and visualization. Patient was placed in steep Trendelenburg position. The bowel and other abdominal structures were packed away from the operative field. The uterus was grabbed using double-tooth tenaculum and placed under cephalad traction. The uterus was inspected and a large fibroid was noted just above the uterine cervix. Multiple other small fibroids and adenomyosis was noted throughout the uterine corpus. A few bands of bladder at the region were noted. Dissection was started from the bladder peritoneum which was carefully dissected using sharp dissection. Attention was next turned to the right round ligament that was divided. Next the left round ligament was divided. The anterior peritoneal reflection was dissected until it joined the bladder reflection. Attention was now turned to the right fallopian tube which was separately dissected off. Attention was next turned to the right utero-ovarian ligament that was sealed and dissected. Dissection was carried down the right side of the uterus until the uterine arteries were skeletonized divided and sealed. Same procedure was repeated on the left side. At the level of the endocervix the fibroid was very large and obscured access. A pair of Z clamps were placed just below the fibroid at the supracervical portion and the uterus along with the fibroids was now amputated at that level. All pedicles were ligated using 0 Vicryl. All the dissection was carried out using the Enseal X1 large vessel sealing device. Once the uterus was amputated the cervix was noted to be tightly adherent to the bladder and at this time it did not appear safe to carry the dissection any further. If the procedure was terminated as a supracervical hysterectomy. Now attention was turned to the right ovary. The right ovary was noted to have a large hemorrhagic cyst. The ovary was divided and dissected off from the right infundibulopelvic ligament. All instruments were now withdrawn. The pelvic cavity was copiously irrigated. A few areas on the pelvic peritoneum that were noted to be bleeding or oozing were cauterized using the Bovie and [id number] sutures were applied. The bowel packing and the Herb retractor was removed. Some amount of bleeding was noted from both sides of the rectus muscle and these were ligated using [id number] sutures using chromic. The rectus fascia was now closed using 0 Vicryl in a running fashion. The subcutaneous fat was reapproximated using 2-0 Monocryl STRATAFIX suture. The skin was closed using 4-0 Monocryl. A Dermabond Prineo dressing was applied. The patient was now undraped, the skin was thoroughly cleaned and she was reversed from general anesthesia. Patient was now taken to the recovery room in a stable and awake condition. Patient tolerated the entire procedure well. All instrument, sponge and lap counts were correct x 2. No complications were encountered during the procedure. Estimated blood loss (ml): 150 Complications: none Surgical staff Operation Date: 01/04/25 07:30 Case Staff Anesthesiologist: Henrik Mccarthy RN First Assistant: Jayashree Levine Diagnosis Discharge Diagnosis (1) Symptomatic anemia: Status: Acute (2) Bleeding, uterine, dysfunctional: Status: Acute (3) Intramural leiomyoma of uterus: Status: Acute (4) Perimenopausal menorrhagia: Status: Acute Problem List Completed Was Problem List Reviewed/Reconciled?: Yes
--- NOTE | 2025-01-04 09:28 | SUR.PHASEI ---
0928: Pt. arrived with oral airway in place, vitals stable, breathing unlabored, no signs of distress, dressing to lower ABD CDI, peripad in place with scant amount of blood, report received from Sophia RUSSELL and Joya SOMMER.
[2025-01-04] MEDS: HYDROmorphone 1 MG/ML PCA SYRINGE 30ML PCA (09:57)
[2025-01-04] MEDS: SODIUM CHLORIDE 0.9% 1000 ML 1,000 ML 200 ML IV ×3 (09:58→21:42)
--- NOTE | 2025-01-04 11:30 | SUR.PHASEI ---
1130: Pt. AAOx4, vitals stable, breathing unlabored, no complaint of pain or nausea, dressing to lower ABD CDI, no active bleed noted, ABD binder in place, dutta catheter in place, pt. tolerated sips of water well, gave report to Joy SOMMER prior to transfer to room 380. Family made aware of transfer to room, pt. transferred with all personal belongings.
[2025-01-04] MEDS: ACETAMINOPHEN IVPB 1,000 MG/100 ML VIAL 250 MG IV ×2 (11:48→17:14)
[2025-01-05] VITALS (8 sets, daily range): BP systolic 120–154; BP diastolic 77–94; PULSE 78–98; RESP 14–21; TEMP 35.9–36.6; O2SAT 95–98
[2025-01-05] MEDS: ACETAMINOPHEN IVPB 1,000 MG/100 ML VIAL 250 MG IV ×2 (00:09→06:02)
[2025-01-05] MEDS: SODIUM CHLORIDE 0.9% 1000 ML 1,000 ML 200 ML IV (03:10)
[2025-01-05 06:09] LABS: Basophils # (Auto) 0.0 Thou/mm3 (0.0-0.2); Basophils % (Auto) 0 % (0-2.5); Eosinophils # (Auto) 0.0 Thou/mm3 (0.0-0.5); Eosinophils % (Auto) 0 % (0-10); Hematocrit 34.0 % (36.0-46.0); Hemoglobin 10.2 g/dL (12.0-16.0); Immature Granulocytes Auto 0.04 Thou/mm3 (0.00-0.00); Lymphocytes # (Auto) 1.1 Thou/mm3 (1.0-4.8); Lymphocytes % (Auto) 9 % (10-50); Mean Corpuscular HGB Conc 30.0 g/dl (31.0-37.0); Mean Corpuscular Hemoglobin 22.3 pg (25.0-35.0); Mean Corpuscular Volume 74 fL (80-100); Monocytes # (Auto) 1.2 Thou/mm3 (0.0-0.8); Monocytes % (Auto) 10 % (0-12); Neutrophils # (Auto) 9.7 Thou/mm3 (1.8-7.7); Neutrophils % (Auto) 81 % (37-80); Nucleated Red Blood Cell # 0.00 Thou/mm3 (0.00-0.00); Nucleated Red Blood Cell % 0 /100 WBC (0); Platelet Count 261 Thou/mm3 (140-440); RDW Standard Deviation 55.8 fL (36.4-46.3); Red Blood Count 4.57 Miln/mm3 (4.00-5.20); White Blood Count 12.0 Thou/mm3 (3.6-11.0)
[2025-01-05 06:25] LABS: Anion Gap 8 (7-16); BUN/Creatinine Ratio 14 Ratio (12-20); Blood Urea Nitrogen 7 mg/dL (9-23); Calcium 8.4 mg/dL (8.3-10.6); Carbon Dioxide 26.3 mMol/L (20.0-31.0); Chloride 106 mMol/L (98-107); Creatinine (Component) 0.5 mg/dL (0.6-1.3); Estimated Creatinine Clearance 157.9 mL/min (>60); Glucose 125 mg/dL (74-106); Osmolality,Calculated 278 (275-295); Potassium 3.9 mMol/L (3.4-5.1); Sodium 140 mMol/L (136-145); eGFR > 60 See Note
--- NOTE | 2025-01-05 07:36 | PD.GYNPROG ---
Documentation for date of: 01/05/25 OUTREACH SPECIALIST Subjective Subjective Interval history: Patient doing well this morning. Pain is adequately controlled on the current regimen. No incisional complaints, no chest pain, shortness of breath, breathing difficulties. Ambulating, tolerating p.o., Adequate UOP Exam Vital Signs Temp Pulse Resp BP Pulse Ox O2 Del Method O2 Flow Rate 96.7 F L 85 18 120/78 96 Nasal Cannula 2 01/05/25 04:00 01/05/25 04:00 01/05/25 07:17 01/05/25 04:00 01/05/25 04:00 01/05/25 04:00 01/05/25 04:00 Constitutional Constitutional: no acute distress Routine HEENT Exam Head: Present normocephalic and atraumatic Eye: Present EOMI and PERRL ENT: Present mucous membranes moist Routine Neck Exam Neck: Present supple and trachea midline Routine Respiratory Exam Respiratory: Present chest non-tender, lungs clear, normal breath sounds and no resp distress Routine Cardiovascular Exam Cardiovascular: Present RRR Routine Abdominal Exam Abdominal: Present soft and normoactive bowel sounds Routine Extremities Exam Extremities: Present full ROM Routine Skin Exam Skin: Present intact and dry Routine Neurological Exam Neurological: Present alert, oriented X3 and CN II-XII intact Routine Psychiatric Exam Psychiatric: Present normal affect and normal thought process Urinary Catheter Management Cath placed during this visit: no OUTREACH SPECIALIST - PN: Obj Data Labs 01/05/25 05:12 01/05/25 05:12 Labs: Laboratory Results - last 24 hr 01/05/25 05:12 WBC 12.0 H RBC 4.57 Hgb 10.2 L Hct 34.0 L MCV 74 L MCH 22.3 L MCHC 30.0 L RDW Std Deviation 55.8 H Plt Count 261 D Neut % (Auto) 81 H Lymph % (Auto) 9 L [place] % (Auto) 10 Eos % (Auto) 0 Baso % (Auto) 0 Neut # (Auto) 9.7 H Lymph # (Auto) 1.1 [place] # (Auto) 1.2 H Eos # (Auto) 0.0 Baso # (Auto) 0.0 Immature Gran # (Auto) 0.04 H Absolute Nucleated RBC 0.00 Immature Gran % 0 Nucleated RBC % 0 Sodium 140 Potassium 3.9 Chloride 106 Carbon Dioxide 26.3 Anion Gap 8 BUN 7 L Creatinine 0.5 L Estim Creat Clear Calc 157.9 eGFR > 60 BUN/Creatinine Ratio 14 Glucose 125 H Calculated Osmolality 278 Calcium 8.4 OUTREACH SPECIALIST - A/P Assessment and plan (1) Symptomatic anemia: Status: Acute (2) Bleeding, uterine, dysfunctional: Status: Acute (3) Intramural leiomyoma of uterus: Status: Acute (4) Perimenopausal menorrhagia: Status: Acute (5) S/P total abdominal hysterectomy: Status: Acute Assessment and plan: POD#1 1. Continue routine post operative care 2. Transition to PO meds. 3. Encourage to ambulate 4. Anticipate discharge home later today or early tomorrow 5. Home care instructions reviewed Postoperative Procedures: Procedures Operation Date: 01/04/25 07:30 Actual Procedure Side Surgeon p Hysterectomy, Total Abdominal Jose Oswald MD Time Spent With Patient Time: Total time spent is greater than 50% in coordination of care (as documented) at patient's floor/unit and/or counseling patient: Time with patient: less than 15 minutes
[2025-01-05] MEDS: ONDANSETRON INJ 2 MG/ML INJ 2 ML 4 MG IV (07:59)
[2025-01-05] MEDS: DOCUSATE SOD 100 MG CAPSULE PO (09:18)
[2025-01-05] MEDS: KETOROLAC INJ 30 MG/ML VIAL IVP ×2 (09:18→12:44)
[2025-01-05] MEDS: Milk Of Magnesia Susp 30 ML UDC PO (09:29)
--- NOTE | 2025-01-05 09:42 | PC.NURSE ---
discontinued ACCOUNTS PAYABLE LEAD pump wasted 14ml with ROS Hopper
[2025-01-05] MEDS: LACTULOSE SYRUP 20 GM/30 ML UDC 10 GM PO (12:43)
[2025-01-05] MEDS: IBUPROFEN TAB 400 MG TABLET 800 MG PO (16:53)
== END 2025-01-05 17:12 | disposition home or self-care (01) | DRG 743 ==
LOC: S2W1 07:27 → S3SX 11:36
PROVIDERS: Admitting Provider Obstetrics & Gynecology; PCP Physician Assistant; Referring Provider Obstetrics & Gynecology; Visit Provider Obstetrics & Gynecology
PROC: 0UT90ZZ Resection of Uterus, Open Approach (ICD-10-PCS; principal; 2025-01-04 07:30)
DX: D25.1 Intramural leiomyoma of uterus (principal); N92.0 Excessive and frequent menstruation with regular cycle; N80.03 Adenomyosis of the uterus; Z30.2 Encounter for sterilization
CPT/HCPCS: 36415; 80048; 84703; 85025; 86850; 86900; 86901; 87081; A4217; A4649; J0131; J0330; J0690; J1100; J1171; J1885; J2250; J2371; J2405; J2704; J3010; J3490; J7030; A9270; J1805

== ENCOUNTER 2025-01-17 08:59 | Outpatient (AMB) | payer OTHER, SELFPAY ==
[2025-01-17 09:35] VITALS: BP 132/88; PULSE 100; RESP 18; TEMP 36.9; O2SAT 95; BMI 38.0
--- NOTE | 2025-01-17 09:35 | AMB.GYNCLNOT ---
Vital Signs 01/17/25 09:35 Height 1.6 m Height Method Stated Weight 97.296 kg Weight Measurement Method Standing Scale BMI 38.0 BP 132/88 H Blood Pressure Source Automatic Cuff Blood Pressure Location Right Upper Arm Position Sitting Respiration 18 Pulse 100 Pulse Source Monitor Temp 98.4 F Temp Source Temporal Artery Scan Pulse Oximetry (%) 95 Oxygen Delivery Method Room Air Allergies/Home Meds Allergies & Medications Allergies No Known Allergies Allergy (Verified 01/17/25 09:37) Medication Reconciliation docusate sodium 100 mg capsule (Stool Softener) 100 mg PO QDAY 30 days #30 caps 01/05/25 [Rx Confirmed 01/17/25] Intake Visit Data Collection New Patient or Established: Established Patient (seen at [facility] within 3 years) Reason for Visit:: POST OP Seen by Clinical Staff ONLY (RN/MA): No 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 Required: No Do You Feel Safe at Home: Yes Authorities Contacted: N/A PCP or OBGYN visit in last 3 months: Yes Date of Last PCP or OBGYN visit: 12/13/24 Hx Now: No Are you currently on any form of Control: No Pain Present Currently: No Pain Scale Used: Martin-Wolfe/Numerical Pain scale:: 0 Smoking Status Smoking Status: Never smoker Immunizations Flu Vaccine in the Last 12 Months: No Flu Vaccine Exclusion Criteria: No Exclusion Criteria 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 Age at menarche: 11 Additional comments: 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 1. Little interest or pleasure in doing things: not at all 2. Feeling down, depressed, or hopeless: not at all Total score: 0 PHQ-9 3. Trouble falling or staying asleep, or sleeping too much: Not at all 4. Feeling tired or having little energy: Not at all 5. Poor appetite or overeating: Not at all 6. Feeling bad about yourself - or that you are a failure or have let yourself or your family down: Not at all 7. Trouble concentrating on things, such as reading the newspaper or watching television: Not at all 8. Moving or speaking so slowly that other people could have noticed? - Or the opposite - being so fidgety or restless that you have been moving around a lot more than usual: not at all 9. Thoughts that you would be better off or of hurting yourself in some way: Not at all Total score: 0 If you checked off any problems, how difficult have these problems made it for you to do your work, take care of things at home, or get along with other people?: not difficult at all Source: Developed by Drs. Roni Villela, Tg Velasco, Tomy Davis and colleagues, with an educational tatiana from [employer] Depression screen completed yes Social History Living Situation History Marital Status: Lives With: Family Housing: House Housing Other:: Pt lives with , mom, and son Tobacco History Smoking Status: Never smoker Second Hand Smoke Exposure: No Alcohol History Alcohol Intake: Never Alcohol Intake Frequency: holidays/special occasions only Domestic Abuse History Do You Feel Safe at Home: Yes History of Present Illness HPI Narrative Ananya Mccarthy presents for post-operative follow-up approximately 2 weeks after undergoing hysterectomy with right oophorectomy on January 04, 2025. The surgical procedure involved removal of her right ovary, fallopian tubes, uterus, and cervix. She reports developing a yeast infection following surgery, which she attributes to the post-operative antibiotics. She describes being sensitive to antibiotics and notes that she typically does not take them outside of medical necessity. The patient is currently wearing a post-surgical binder as directed. She reports that the band-aid from her surgical site came off completely yesterday. She has begun driving short distances, testing herself with a few blocks, though she acknowledges being cautious about sudden movements like turning around to reverse. She has support from her mother during her recovery period. She recently completed a course of antibiotics which caused the yeast infection. ROS: Genitourinary: Positive for yeast infection. Negative except as stated above, limited to PRINCIPAL DEVELOPER and pertinent complaints. - Pathology report: Bilateral fallopian tubes unremarkable, uterus with myomas (fibroids) in uterus and cervix, mild adenomyosis, unremarkable cervix, right ovary benign with cysts. All findings benign, no malignancy identified. Exam Narrative Physical exam: - Abdominal: Surgical site appears well-healed. Patient wearing abdominal binder. General General Appearance: alert, in no apparent distress and healthy appearing Head Head exam: atraumatic Neck Neck exam: Present normal inspection and trachea midline Chest Chest inspection: Present normal inspection and symmetric chest wall rise External exam: Present normal external exam; Absent tenderness Neuro Neurological exam: Present oriented X3 Psych Psychiatric exam: Present normal affect and normal mood Office Procedures OBC Clinic LOC & Office Proc's Nursing/Assessment Patient Status: Established Patient OB Clinic Nursing Assessment: Medication Reconciliation, Update PMH in EMR and Vital Signs OB Clinic Coordination of Care: Complex Care and Chronic Disease 1-5, Education Complex Pt/Fam, Consent,records obtained, informed consent, Lab and Imaging orders, Results/Orders obtained and Staff clarify orders Established Patient Charge Established Patient Point Assignment: 110 Established Patient Point Charge: EP Level 3 (80-115) Assessment & Plan Diagnosis / Problem List (1) S/P total abdominal hysterectomy: Status: Acute (2) Perimenopausal menorrhagia: Status: Acute Plan Post-operative status post hysterectomy and right oophorectomy: - Patient is 2 weeks post-operative from surgery performed on January 04. - Pathology results show benign findings with no signs of malignancy. - Uterine and cervical myomas (fibroids) were identified along with mild adenomyosis. - Right ovary showed benign cysts. - Surgical site appears to be healing well with band-aid removed yesterday. Plan: - Continue abdominal binder use for one month post-operatively when upright; may remove when sleeping, showering, or lying down relaxing. - Follow-up appointment scheduled in one month to assess healing and potentially perform internal examination before full clearance. - Patient cleared for driving with caution regarding sudden movements and bumps. Yeast infection: - Patient developed yeast infection following post-operative antibiotic course. - Common occurrence after antibiotic treatment. Plan: - Prescribe antifungal tablets to [facility].
== END 2025-01-17 09:38 | disposition home or self-care (01) ==
LOC: HODSOBC 08:59
PROVIDERS: PCP Physician Assistant; Referring Provider Physician Assistant; Supervising Provider Obstetrics & Gynecology; Visit Provider Obstetrics & Gynecology
DX: Z48.816 Encounter for surgical aftercare following surgery on the genitourinary system (principal); T81.40XA Infection following a procedure, unspecified, initial encounter; B37.49 Other urogenital candidiasis; Z87.42 Personal history of other diseases of the female genital tract; Z90.710 Acquired absence of both cervix and uterus; Z90.721 Acquired absence of ovaries, unilateral; Y83.6 Removal of other organ (partial) (total) as the cause of abnormal reaction of the patient, or of later complication, without mention of misadventure at the time of the procedure
CPT/HCPCS: 99213; G0463

== ENCOUNTER 2025-02-13 08:09 | Outpatient (AMB) | payer OTHER, SELFPAY ==
[2025-02-13 08:20] VITALS: BP 137/93; PULSE 93; RESP 18; TEMP 36.8; O2SAT 95; BMI 38.0
--- NOTE | 2025-02-13 08:20 | AMB.OBPNC ---
Vital Signs 02/13/25 08:20 Height 1.6 m Height Method Stated Weight 97.239 kg Weight Measurement Method Standing Scale BMI 38.0 BP 137/93 H Blood Pressure Source Automatic Cuff Blood Pressure Location Left Upper Arm Position Sitting Respiration 18 Pulse 93 Pulse Source Monitor Temp 98.2 F Temp Source Oral Pulse Oximetry (%) 95 Oxygen Delivery Method Room Air Allergies/Home Meds Allergies & Medications Allergies No Known Allergies Allergy (Verified 02/13/25 08:21) Immunizations Immunizations Flu Vaccine in the Last 12 Months: Yes Flu Vaccine Exclusion Criteria: Already Received
--- NOTE | 2025-02-13 08:22 | GYNCLNT_ITS ---
Vital Signs 02/13/25 08:20 02/13/25 08:25 Height 1.6 m Height Method Stated Weight 97.239 kg Weight Measurement Method Standing Scale BMI 38.0 BP 137/93 H 137/93 H Blood Pressure Source Automatic Cuff Blood Pressure Location Left Upper Arm Position Sitting Respiration 18 18 Pulse 93 93 Pulse Source Monitor Temp 98.2 F 98.2 F Temp Source Oral Pulse Oximetry (%) 95 95 Oxygen Delivery Method Room Air Allergies/Home Meds Allergies & Medications Allergies No Known Allergies Allergy (Verified 02/27/25 08:23) Medication Reconciliation No Known Home Medications 02/13/25 [History Confirmed 02/27/25] Intake Visit Data Collection New Patient or Established: Established Patient (seen at [facility] within 3 years) Reason for Visit:: POST OP Seen by Clinical Staff ONLY (RN/MA): No Material Loader Required: No Do You Feel Safe at Home: Yes Authorities Contacted: N/A PCP or OBGYN visit in last 3 months: Yes Hx Now: No Are you currently on any form of Control: No Last menstrual period: 12/31/24 Pain Present Currently: No Pain Scale Used: Martin-Wolfe/Numerical Pain scale:: 0 Smoking Status Smoking Status: Never smoker Immunizations Flu Vaccine in the Last 12 Months: Yes Flu Vaccine Exclusion Criteria: Already Received 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 History Menstrual regularity: irregular Flow: heavy Monthly: No How many days does period last: 7 Age at menarche: 12 Currently sexually active: Yes 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 1. Little interest or pleasure in doing things: not at all 2. Feeling down, depressed, or hopeless: not at all Total score: 0 PHQ-9 3. Trouble falling or staying asleep, or sleeping too much: Not at all 4. Feeling tired or having little energy: Not at all 5. Poor appetite or overeating: Not at all 6. Feeling bad about yourself - or that you are a failure or have let yourself or your family down: Not at all 7. Trouble concentrating on things, such as reading the newspaper or watching television: Not at all 8. Moving or speaking so slowly that other people could have noticed? - Or the opposite - being so fidgety or restless that you have been moving around a lot more than usual: not at all 9. Thoughts that you would be better off or of hurting yourself in some way: Not at all Total score: 0 Source: Developed by Drs. Roni Villela, Tg Velasco, Tomy Davis and colleagues, with an educational tatiana from [employer]. Depression screen completed yes Social History Living Situation History Lives With: Family Housing: House Housing Other:: Pt lives with , mom, and son Tobacco History Smoking Status: Never smoker Second Hand Smoke Exposure: No Alcohol History Alcohol Intake: Current Alcohol Intake Frequency: holidays/special occasions only Domestic Abuse History Do You Feel Safe at Home: Yes History of Present Illness HPI Narrative Ananya Mccarthy presents for post-operative follow-up following surgery on January 04, reporting that she feels 80% recovered. She experiences disco mfort after light shopping activities, noting that she did not carry anything but still felt pain. She attributes this discomfort to overdoing her activities and told her that she thought she had pushed herself too hard. She describes feeling pain particularly after wrapping presents and going shopping, questioning why she was hurting so much and concluding that she probably overdid her activities. The patient reports she has been wearing some type of supportive garment when going out as a precautionary measure. She has been adhering to post-operative restrictions, specifically avoiding vaginal insertion of anything including sexual activity and douching. She is scheduled to return to work on March 05. She has a history of surgery on January 04, 2025. The patient has been taking Lupron. She is and lives with her . ROS: Not documented. Exam General General Appearance: alert, in no apparent distress and healthy appearing Head Head exam: atraumatic Neck Neck exam: Present normal inspection and trachea midline Chest Chest inspection: Present normal inspection and symmetric chest wall rise External exam: Present normal external exam; Absent tenderness Neuro Neurological exam: Present oriented X3 Psych Psychiatric exam: Present normal affect and normal mood Office Procedures OBC Clinic LOC & Office Proc's Nursing/Assessment Patient Status: Established Patient OB Clinic Nursing Assessment: Medication Reconciliation, Update PMH in EMR and Vital Signs OB Clinic Coordination of Care: Complex Care and Chronic Disease 1-5, Consent,records obtained, informed consent, Education Simp Pt/Fam, 1 Ins Authorization, Lab and Imaging orders, Results/Orders obtained and Staff clarify orders Established Patient Charge Established Patient Point Assignment: 120 Established Patient Point Charge: EP Level 4 (120-155) Assessment & Plan Diagnosis / Problem List (1) S/P total abdominal hysterectomy: Status: Acute (2) Other specified postprocedural states: Status: Acute Plan Postoperative Recovery Status: - Patient is approximately 5-6 weeks postoperative from surgery performed on January 04. - Reports feeling 80% recovered overall with some discomfort after increased activity. - Experienced discomfort after shopping and wrapping presents, attributed to overdoing activities. - Appropriately wearing supportive garment when going out and compliant with activity restrictions. Plan: - Continue current activity restrictions with no vaginal penetration (no sex, no douching, no vaginal cleaning). - Encourage gradual increase in activity level and exercise. - Begin light lifting with gradual progression, starting slowly. - Schedule follow-up appointment before March 05 return to work date for internal examination to assess internal sutures and provide clearance for full activity.
[2025-02-13 08:25] VITALS: BP 137/93; PULSE 93; RESP 18; TEMP 36.8; O2SAT 95
== END 2025-02-13 09:19 | disposition home or self-care (01) ==
LOC: HODSOBC 08:09
PROVIDERS: Supervising Provider Obstetrics & Gynecology; Visit Provider Obstetrics & Gynecology
DX: Z48.816 Encounter for surgical aftercare following surgery on the genitourinary system (principal); Z90.710 Acquired absence of both cervix and uterus
CPT/HCPCS: 99214; G0463

== ENCOUNTER 2025-02-27 08:10 | Outpatient (AMB) | payer OTHER, SELFPAY ==
--- NOTE | 2025-02-27 08:20 | AMB.OBPNC ---
Vital Signs 02/27/25 08:21 Height 1.6 m Height Method Stated Weight 96.672 kg Weight Measurement Method Standing Scale BMI 37.8 BP 128/89 H Blood Pressure Source Automatic Cuff Blood Pressure Location Right Upper Arm Position Sitting Respiration 18 Pulse 92 Pulse Source Monitor Temp 98.2 F Temp Source Temporal Artery Scan Pulse Oximetry (%) 96 Oxygen Delivery Method Room Air Allergies/Home Meds Allergies & Medications Allergies No Known Allergies Allergy (Verified 02/27/25 08:23) Medication Reconciliation No Known Home Medications 02/13/25 [History Confirmed 02/27/25] Immunizations Immunizations Flu Vaccine in the Last 12 Months: No Flu Vaccine Exclusion Criteria: No Exclusion Criteria Office Procedures OBC Clinic LOC & Office Proc's Nursing/Assessment Patient Status: Established Patient OB Clinic Nursing Assessment: Medication Reconciliation, Update PMH in EMR and Vital Signs OB Clinic Coordination of Care: Complex Care and Chronic Disease 1-5, Education Complex Pt/Fam, Consent,records obtained, informed consent, Lab and Imaging orders, Results/Orders obtained and Staff clarify orders Established Patient Charge Established Patient Point Assignment: 110 Established Patient Point Charge: EP Level 3 (80-115)
[2025-02-27 08:21] VITALS: BP 128/89; PULSE 92; RESP 18; TEMP 36.8; O2SAT 96; BMI 37.8
--- NOTE | 2025-02-27 08:58 | AMB.GYNCLNOT ---
Vital Signs 02/27/25 08:21 02/27/25 09:01 Height 1.6 m Height Method Stated Weight 96.672 kg Weight Measurement Method Standing Scale BMI 37.8 BP 128/89 H 128/89 H Blood Pressure Source Automatic Cuff Blood Pressure Location Right Upper Arm Position Sitting Respiration 18 18 Pulse 92 92 Pulse Source Monitor Temp 98.2 F 98.2 F Temp Source Temporal Artery Scan Pulse Oximetry (%) 96 96 Oxygen Delivery Method Room Air Allergies/Home Meds Allergies & Medications Allergies No Known Allergies Allergy (Verified 02/27/25 08:23) Medication Reconciliation No Known Home Medications 02/13/25 [History Confirmed 02/27/25] Intake Visit Data Collection New Patient or Established: Established Patient (seen at [facility] within 3 years) Reason for Visit:: POST OP Seen by Clinical Staff ONLY (RN/MA): No Belt Sander Stone Required: No Do You Feel Safe at Home: Yes Authorities Contacted: N/A PCP or OBGYN visit in last 3 months: Yes Date of Last PCP or OBGYN visit: 02/13/25 Hx Now: No Are you currently on any form of Control: No Pain Present Currently: Yes Pain Location: Abdomen Pain Scale Used: Martin-Wolfe/Numerical Pain scale:: 3 Smoking Status Smoking Status: Never smoker Immunizations Flu Vaccine in the Last 12 Months: No Flu Vaccine Exclusion Criteria: No Exclusion Criteria 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 1. Little interest or pleasure in doing things: not at all 2. Feeling down, depressed, or hopeless: not at all Total score: 0 PHQ-9 3. Trouble falling or staying asleep, or sleeping too much: Not at all 4. Feeling tired or having little energy: Not at all 5. Poor appetite or overeating: Not at all 6. Feeling bad about yourself - or that you are a failure or have let yourself or your family down: Not at all 7. Trouble concentrating on things, such as reading the newspaper or watching television: Not at all 8. Moving or speaking so slowly that other people could have noticed? - Or the opposite - being so fidgety or restless that you have been moving around a lot more than usual: not at all 9. Thoughts that you would be better off or of hurting yourself in some way: Not at all If you checked off any problems, how difficult have these problems made it for you to do your work, take care of things at home, or get along with other people?: not difficult at all Source: Developed by Drs. Roni Villela, Tg Velasco, Tomy Davis and colleagues, with an educational tatiana from [employer]. Depression screen completed yes Social History Living Situation History Marital Status: Lives With: Family Housing: House Housing Other:: Pt lives with , mom, and son Tobacco History Smoking Status: Never smoker Second Hand Smoke Exposure: No Alcohol History Alcohol Intake: Current Alcohol Intake Frequency: holidays/special occasions only Domestic Abuse History Do You Feel Safe at Home: Yes History of Present Illness HPI Narrative Ananya Mccarthy presents approximately 6 weeks following a total hysterectomy performed on August 09, 2024, reporting a recent fall that occurred this past Wednesday at home where she fell on her side and hit her hip/thigh area. The fall was accidental and she did not hit her head. Following the fall, she experienced significant soreness by nighttime, prompting her to take pain medication that were previously prescribed. She was concerned about whether the fall could have affected her surgical site or recovery, particularly worrying about potential internal bleeding after researching online. She reports no visible bruising or discoloration from the fall and denies any bleeding. She has a history of total hysterectomy on August 09, 2024. 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 She mentions feeling like she is at 100 percent now aside from the soreness from the recent fall. The patient has been taking pain medication as needed for pain from fall, taking one dose over the weekend for soreness from fall. She works at [employer] and frequently works overtime shifts. The patient is and lives with her . 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 Exam General General Appearance: alert, in no apparent distress and healthy appearing Head Head exam: atraumatic Neck Neck exam: Present normal inspection and trachea midline Chest Chest inspection: Present normal inspection and symmetric chest wall rise External exam: Present normal external exam; Absent tenderness Neuro Neurological exam: Present oriented X3 Psych Psychiatric exam: Present normal affect and normal mood Office Procedures [facility] LOC & Office Proc's Nursing/Assessment Patient Status: Established Patient OB Clinic Nursing Assessment: Medication Reconciliation, Update PMH in EMR and Vital Signs OB Clinic Coordination of Care: Complex Care and Chronic Disease 1-5, Education Complex Pt/Fam, Consent,records obtained, informed consent, Lab and Imaging orders, Results/Orders obtained and Staff clarify orders Established Patient Charge Established Patient Point Assignment: 110 Established Patient Point Charge: EP Level 3 (80-115) Assessment & Plan Diagnosis / Problem List (1) S/P total abdominal hysterectomy: Status: Acute Plan Postoperative status post total hysterectomy: - Patient is approximately 6 weeks post total hysterectomy performed on August 09, 2024. - No bruising or concerning findings on examination. - Beyond critical healing period where trauma would compromise surgical outcomes. Plan: - Patient cleared from surgical standpoint with no further follow-up needed. - Advised gradual return to work activities rather than immediately resuming overtime shifts. Recent fall with hip soreness: - Patient fell at home this past Wednesday, landing on her side and impacting hip/thigh area. - Significant soreness prompted pain medication use over weekend. - Physical examination showed no bruising, discoloration, or palpable abnormalities. - No signs of internal injury to liver or kidney despite lateral impact. Plan: - Take Tylenol and ibuprofen as needed for pain management. - Soreness expected to resolve in 2-4 days. - No further intervention required.
[2025-02-27 09:01] VITALS: BP 128/89; PULSE 92; RESP 18; TEMP 36.8; O2SAT 96
== END 2025-02-27 08:56 | disposition home or self-care (01) ==
LOC: HODSOBC 08:10
PROVIDERS: Supervising Provider Obstetrics & Gynecology; Visit Provider Obstetrics & Gynecology
DX: Z48.816 Encounter for surgical aftercare following surgery on the genitourinary system (principal); Z90.710 Acquired absence of both cervix and uterus; R52 Pain, unspecified; W19.XXXA Unspecified fall, initial encounter; Y92.009 Unspecified place in unspecified non-institutional (private) residence as the place of occurrence of the external cause
CPT/HCPCS: 99213; G0463